=== PATIENT | female | born 1955 | race Caucasian/White ===

== ENCOUNTER 2016-09-10 11:53 | Emergency (ER) | payer BC ==
[2016-09-10 12:08] VITALS: O2SAT 98
[2016-09-10] MEDS ORDERED: Sodium Chloride 0.9% 1000 ML 1,000 ML IV ONE (12:08)
[2016-09-10] MEDS ORDERED: BABY ASPIRIN 81 MG CHEW PO ONE (12:12)
[2016-09-10] MEDS ORDERED: Zofran 4 MG/2 ML VIAL IV ONE (12:12)
[2016-09-10] MEDS ORDERED: Nitrostat 0.4 MG (ED) SL ONE (12:12)
--- NOTE | 2016-09-10 12:18 | ERPHSYRPT ---
- History of Present Illness Time Seen by Provider: 09/10/16 12:15 Historian: patient Exam Limitations: no limitations Patient Subjective Stated Complaint: pt co epigstric pain about 0930 today with nausea, has been out of gerd medication for 3 days Triage Nursing Assessment: pt alert, resp easy, skin w/d,pink, epigastric pain, no edema noted Physician History: The patient is a 61-year-old female who complains of substernal chest pain, epigastric pain and right sided chest pain that began about 2 and half hours ago. The pain radiates through to her back. She has been out of omeprazole for 3 days and thought this was reflux. It has continued even after taking sucralfate. She denies shortness of breath, nausea, or vomiting. Her past medical history is significant only for depression and reflux. She's had no cardiac history. Timing/Duration: today, hour(s) (2 1/2) Activities at Onset: none Quality: sharpness Location: substernal, central Chest Pain Radiation: back Severity of Pain-Max: severe Severity of Pain-Current: severe Modifying Factors: Improves With: antacids Associated Symptoms: No nausea, No vomiting, No shortness of breath Prior Chest Pain/Cardiac Workup: no prior chest pain, non-cardiac Nitro Today/Relief: 0.4 mg x 1, provided by ED Aspirin Treatment Today: 81 mg x 4, provided by ED Allergies/Adverse Reactions: cephalexin monohydrate [From Keflex] Adverse Reaction (Severe, Verified 12:09) Sulfa (Sulfonamide Antibiotics) Adverse Reaction (Severe, Verified 09/10/16 12: 09) Home Medications: Albuterol Sulfate [Proair Hfa] 8.5 gm IH UD 12/26/15 [History] Budesonide/Formoterol Fumarate [Symbicort 160-4.5 Mcg Inhaler] 10.2 gm IH DAILY PRN PRN 12/26/15 [History] Fluoxetine HCl 10 mg [Prozac 10 mg] 10 mg PO DAILY 12/26/15 [History] Omeprazole [Prilosec] 40 mg PO DAILY 12/26/15 [History] Hx Tetanus, Diphtheria Vaccination/Date Given: Yes (unknown) Hx Influenza Vaccination/Date Given: Yes Hx Pneumococcal Vaccination/Date Given: Yes Immunizations Up to Date: Yes - Review of Systems Constitutional: No Fever, No Chills Eyes: No Symptoms Ears, Nose, & Throat: No Symptoms Respiratory: No Cough, No Dyspnea Cardiac: Chest Pain Abdominal/Gastrointestinal: No Abdominal Pain, No Nausea, No Vomiting, No Diarrhea Genitourinary Symptoms: No Dysuria Musculoskeletal: No Back Pain, No Neck Pain Skin: No Rash Neurological: No Dizziness, No Focal Weakness, No Sensory Changes Psychological: No Symptoms Endocrine: No Symptoms Hematologic/Lymphatic: No Symptoms Immunological/Allergic: No Symptoms All Other Systems: Reviewed and Negative - Past Medical History Pertinent Past Medical History: Yes Neurological History: No Pertinent History ENT History: No Pertinent History Cardiac History: No Pertinent History Respiratory History: Bronchitis, Pneumonia Endocrine Medical History: No Pertinent History Musculoskeletal History: No Pertinent History GI Medical History: No Pertinent History History: No Pertinent History Psycho-Social History: No Pertinent History Female Reproductive Disorders: No Pertinent History Other Medical History: kidney stones. bronchitis - Past Surgical History Past Surgical History: Yes Neuro Surgical History: No Pertinent History Cardiac: No Pertinent History Respiratory: No Pertinent History Gastrointestinal: Appendectomy Genitourinary: No Pertinent History Musculoskeletal: No Pertinent History Female Surgical History: No Pertinent History Other Surgical History: TONSILS - Social History Smoking Status: Never smoker Exposure to second hand smoke: No Drug Use: none Patient Lives Alone: Yes - Female History Hx Last Menstrual Period: post - Nursing Vital Signs Nursing Vital Signs: Initial Vital Signs Temperature 97.0 F Temperature Source Oral Pulse Rate 56 Respiratory Rate 18 Blood Pressure [Right Arm] 157/66 Pain Intensity 8 - Physical Exam General Appearance: moderate distress Eye Exam: PERRL/EOMI, eyes nml inspection Ears, Nose, Throat Exam: normal ENT inspection, moist mucous membranes Neck Exam: normal inspection, non-tender, supple, full range of motion Respiratory Exam: normal breath sounds, lungs clear, No respiratory distress Cardiovascular Exam: regular rate/rhythm, normal heart sounds Gastrointestinal/Abdomen Exam: soft, No tenderness, No mass Pelvic Exam: not done Rectal Exam: not done Back Exam: normal inspection, No CVA tenderness, No vertebral tenderness Extremity Exam: normal inspection, normal range of motion Neurologic Exam: alert, oriented x 3, cooperative, normal mood/affect, sensation nml, No motor deficits Skin Exam: normal color, warm, dry SpO2 Interpretation: normal SpO2: 98 Oxygen Delivery: Room Air - Course EKG Interpreted by Me: RATE, Sinus Rhythm, NORMAL AXIS, NORMAL INTERVALS, ST Elev (V3,4,5,6) - Progress Progress: unchanged - Departure Time of Disposition: 12:22 Departure Disposition: Transfer ([facility] per Dr Roa and Dr Hutchison) Clinical Impression: STEMI (ST elevation myocardial infarction) Condition: Good Critical Care Time: Yes Critical Care Time(excluding separately billable procedures): 30-74 minutes
[2016-09-10] MEDS ORDERED: MORPHINE SULFATE 2 MG INJ ONE (12:19)
[2016-09-10] MEDS ORDERED: PLAVIX 75 MG Tablet PO ONE (12:22)
[2016-09-10] MEDS ORDERED: Heparin 25,000 units/D5W 250ML PREMIX 25,000 UNITS/250 ML BAG IV ONE (12:22)
[2016-09-10] MEDS ORDERED: Heparin 5000 UNITS/0.5 ML (HIGH RISK MED) IV ONE (12:22)
[2016-09-10 12:49] VITALS: BP 143/93; PULSE 55
[2016-09-10 13:17] LABS: BASOPHIL % 0.3 % (0.0-0.4); Eosinophil % 1.2 % (0.00-5.0); Granulocytes % 73.2 % (36.0-66.0); Lymphocytes % 16.9 % (24.0-44.0); Mean Cell Volume 93.8 fl (78-100); Mean Corpuscular Hemoglobin 30.4 pg (26-32); Mean Platelet Volume 9.8 fl (6-9.5); Monocytes % 8.4 % (0.0-12.0); Platelet Count 220 K/mm3 (150-450); Red Cell Distribution Width 13.3 % (11.5-14.0); White Blood Count 7.7 K/mm3 (4.0-10.5)
[2016-09-10 13:26] LABS: ALBUMIN 3.5 g/dL (3.4-5.0); ALKALINE PHOSPHATASE 57 U/L (46-116); ANION GAP 12.8 MEQ/L (5-15); BLOOD UREA NITROGEN 16 mg/dL (9-20); CHLORIDE 106 mEq/L (98-107); Carbon Dioxide 26.6 mEq/L (21-32); Glucose 143 MG/DL (70-110); Potassium 3.9 mEq/L (3.5-5.1); SGOT/AST 22 U/L (15-37); SGPT/ALT 20 U/L (12-78); SODIUM 142 mEq/L (136-145); TROPONIN 0.032 ng/ml (0.000-0.056); Total Protein 6.6 gm/dL (6.4-8.2)
--- NOTE | 2016-09-10 17:12 | XRAY ---
Indication: Chest pain. Comparison: December 27, 2015. Portable chest limited as the lung bases not included in the field of view. Technologist notes patient was transferred before repeat exam could be performed. Visualized heart and lungs normal. Bony thorax intact.
== END 2016-09-10 12:28 | disposition short-term general hospital (02) ==
LOC: ED 11:53
DX: I21.3 ST elevation (STEMI) myocardial infarction of unspecified site (principal); R11.0 Nausea; R07.89 Other chest pain; R10.13 Epigastric pain; Z79.899 Other long term (current) drug therapy
CPT/HCPCS: 36000; 36415; 71010; 80053; 84484; 85025; 93005; 93041; 99285; J1644; J2270; J2405; A9270-GY

== ENCOUNTER 2016-10-22 21:44 | Observation (INO) | payer BC ==
[2016-10-22] MEDS ORDERED: MORPHINE SULFATE 4 MG INJ IV ONE (23:33)
[2016-10-22] MEDS ORDERED: Zofran 4 MG/2 ML VIAL IV ONE (23:33)
--- NOTE | 2016-10-22 23:36 | ERPHSYRPT ---
- History of Present Illness Time Seen by Provider: 10/22/16 23:32 Historian: patient Exam Limitations: no limitations Patient Subjective Stated Complaint: Pt sts left side abd pain since yesterday. Hx of diverticulosis. Sts pain 11/22. Did have 2 BM's that were small with mucous and blood streaking in it. Pt describes pain as crampy. Pt denies N/V. Triage Nursing Assessment: Pt alert, oriented, answers all questions appropriately. Skin p/w/d, resps non-labored. ABD soft, tender left side palpation. + bowel sounds x 4 quadrants. Lung sounds CTA bilat non-labored. Physician History: This is a 61-year-old white female with history of atherosclerotic coronary artery disease who has had a recent cardiac stent She arrives with complaint of left lower quadrant abdominal pain bloody mucousy stool symptoms since today. Patient denies any injury past medical history includes bronchitis, pneumonia, coronary artery disease, high blood pressure, myocardial infarction, bronchitis , kidney stones. Past surgical history includes appendectomy cardiac stent. Timing/Duration: today Activities at Onset: none Quality: cramping Abdominal Pain Onset Location: LLQ Pain Radiation: no radiation Severity of Pain-Max: moderate Severity of Pain-Current: moderate Modifying Factors: Improves With: nothing Associated Symptoms: other (mucousy stools), No back, No chest pain, No diaphoresis, No diarrhea, No fever/chills, No fatigue, No headache, No heartburn , No loss of appetite, No nausea, No neck pain Previous symptoms: no prior history Allergies/Adverse Reactions: levofloxacin [From Levaquin] Allergy (Verified 10/22/16 22:51) cephalexin monohydrate [From Keflex] Adverse Reaction (Severe, Verified 12:09) Sulfa (Sulfonamide Antibiotics) Adverse Reaction (Severe, Verified 09/10/16 12: 09) cephalexin [From Keflex] Adverse Reaction (Verified 10/22/16 22:51) Home Medications: Albuterol Sulfate [Proair Hfa] 8.5 gm IH UD 12/26/15 [History] Fluoxetine HCl 10 mg [Prozac 10 mg] 10 mg PO DAILY 12/26/15 [History] Omeprazole [Prilosec] 40 mg PO DAILY 12/26/15 [History] Aspirin [Aspirin EC] 81 mg PO DAILY 10/22/16 [History] Lisinopril 10 mg [Zestril 10 MG] 10 mg PO DAILY 10/22/16 [History] Metoprolol Tartrate 12.5 mg PO BID 10/22/16 [History] Prasugrel HCl [Effient] 10 mg PO DAILY 10/22/16 [History] Rosuvastatin Calcium [Crestor] 10 mg PO DAILY 10/22/16 [History] Hx Tetanus, Diphtheria Vaccination/Date Given: Yes (unknown) Hx Influenza Vaccination/Date Given: Yes Hx Pneumococcal Vaccination/Date Given: Yes Immunizations Up to Date: Yes - Review of Systems Constitutional: No Fever, No Chills Eyes: No Symptoms Ears, Nose, & Throat: No Symptoms Respiratory: No Cough, No Dyspnea Cardiac: No Chest Pain, No Edema, No Syncope Abdominal/Gastrointestinal: Abdominal Pain, Other (mucousy stools with blood) Genitourinary Symptoms: No Dysuria Musculoskeletal: No Back Pain, No Neck Pain Skin: No Rash Neurological: No Dizziness, No Focal Weakness, No Sensory Changes Psychological: No Symptoms Endocrine: No Symptoms All Other Systems: Reviewed and Negative - Past Medical History Pertinent Past Medical History: Yes Neurological History: No Pertinent History ENT History: No Pertinent History Cardiac History: Coronary Artery Disease, Hypertension, Myocardial Infarction ( [place]) Respiratory History: Bronchitis, Pneumonia Endocrine Medical History: No Pertinent History Musculoskeletal History: No Pertinent History GI Medical History: GERD History: No Pertinent History Psycho-Social History: No Pertinent History Female Reproductive Disorders: No Pertinent History Other Medical History: kidney stones. bronchitis - Past Surgical History Past Surgical History: Yes Neuro Surgical History: No Pertinent History Cardiac: No Pertinent History Respiratory: No Pertinent History Gastrointestinal: Appendectomy Genitourinary: No Pertinent History Musculoskeletal: No Pertinent History Female Surgical History: No Pertinent History Other Surgical History: TONSILS, cardiac stent x 1 - Social History Smoking Status: Never smoker Exposure to second hand smoke: No Drug Use: none Patient Lives Alone: Yes - Nursing Vital Signs Nursing Vital Signs: Initial Vital Signs Temperature 100.3 F Temperature Source Oral Pulse Rate 78 Respiratory Rate 16 Blood Pressure [] 116/51 Pain Intensity 9 - Physical Exam General Appearance: moderate distress Eye Exam: PERRL/EOMI, eyes nml inspection Ears, Nose, Throat Exam: normal ENT inspection, pharynx normal, moist mucous membranes Neck Exam: normal inspection, non-tender, supple, full range of motion Respiratory Exam: normal breath sounds, lungs clear, No respiratory distress Cardiovascular Exam: regular rate/rhythm, normal heart sounds Gastrointestinal/Abdomen Exam: soft, normal bowel sounds, tenderness (left lower quadrant tenderness), No rebound Back Exam: normal inspection, normal range of motion, No CVA tenderness, No vertebral tenderness Extremity Exam: normal inspection, normal range of motion, pelvis stable Neurologic Exam: alert, oriented x 3, cooperative, normal mood/affect, nml cerebellar function, sensation nml, No motor deficits Skin Exam: normal color, warm, dry SpO2 Interpretation: normal (98%) SpO2: 98 Oxygen Delivery: Room Air - Course Nursing assessment & vital signs reviewed: Yes EKG Interpreted by Me: RATE (68 bpm), Sinus Rhythm, NORMAL AXIS, Other (EKG, sinus rhythm, 68 bpm, isolated T-wave inversion in lead 3, no acute ST or T wave changes noted) - CT Exams Abdomen/Pelvis CT Interpretation: Tele-radiologist Report (CT abdomen and pelvis without contrast: 1. Sigmoid/distal descending colon diverticulosis with surrounding inflammatory stranding consistent with diverticulitis, less likely colitis 2. Tiny nonobstructing biateral renal calculi versus medullary nephrocalcinosis.) Ordered Tests: Active Orders 24 hr Category Date Time Status EKG-ER Only STAT Care 10/22/16 23:32 Active IV Insertion STAT Care 10/22/16 23:32 Active ABDOMEN AND PELVIS W/0 CONTRAS [CT] Stat Exams 10/23/16 01:31 Taken AMYLASE Stat Lab 10/22/16 23:52 Completed CBC W DIFF Stat Lab 10/22/16 23:52 Completed CMP Stat Lab 10/22/16 23:52 Completed LIPASE Stat Lab 10/22/16 23:52 Completed UA W/ MICROSCOPIC Stat Lab 10/22/16 23:37 Completed Transfer Order Routine Transfer 10/23/16 03:21 Ordered Medication Summary Generic Name Dose Route Start Last Admin Trade Name Freq PRN Reason Stop Dose Admin Sodium Chloride 1,000 mls @ 100 mls/hr 10/22/16 23:45 10/22/16 23:55 Sodium Chloride 0.9% 1000 Ml IV 11/21/16 23:44 100 mls/hr .Q10H SAMANTA Administration Metronidazole 500 mg in 100 mls @ 200 mls/hr 10/23/16 03:10 Flagyl 500 Mg Ivpb IV 10/23/16 03:39 STAT STA Discontinued Medications Generic Name Dose Route Start Last Admin Trade Name Nat PRN Reason Stop Dose Admin Morphine Sulfate 4 mg 10/22/16 23:33 10/22/16 23:55 Morphine Sulfate 4 Mg Inj IV 10/22/16 23:34 4 mg STAT ONE Administration Morphine Sulfate Confirm 10/22/16 23:47 Morphine Sulfate 4 Mg Inj Administered 10/22/16 23:48 Dose 4 mg .ROUTE .STK-MED ONE Ondansetron HCl 4 mg 10/22/16 23:33 10/22/16 23:55 Zofran 4 Mg/2 Ml Vial IV 10/22/16 23:34 4 mg STAT ONE Administration Ondansetron HCl Confirm 10/22/16 23:47 Zofran 4 Mg/2 Ml Vial Administered 10/22/16 23:48 Dose 4 mg .ROUTE .STK-MED ONE Lab/Rad Data: Laboratory Result Diagrams 10/22/16 23:52 10/22/16 23:52 Laboratory Results 10/22/16 10/22/16 10/22/16 Range/Units 23:52 23:52 23:37 WBC 7.6 (4.0-10.5) K/mm3 RBC 4.41 (4.1-5.4) M/mm3 Hgb 13.7 (12.0-16.0) gm/dl Hct 41.1 (35-47) % MCV 93.2 (78-100) fl MCH 31.1 (26-32) pg MCHC 33.3 (32-36) g/dl RDW 12.8 (11.5-14.0) % Plt Count 189 (150-450) K/mm3 MPV 9.6 H (6-9.5) fl Gran % 74.0 H (36.0-66.0) % Lymphocytes % 13.8 L (24.0-44.0) % Monocytes % 11.2 (0.0-12.0) % Eosinophils % 0.7 (0.00-5.0) % Basophils % 0.3 (0.0-0.4) % Basophils # 0.02 (0-0.4) Sodium 142 (136-145) mEq/L Potassium 3.7 (3.5-5.1) mEq/L Chloride 105 (98-107) mEq/L Carbon Dioxide 26.5 (21-32) mEq/L Anion Gap 14.2 (5-15) MEQ/L BUN 22 H (9-20) mg/dL Creatinine 1.19 (0.55-1.30) mg/dl Estimated GFR 49 ML/MIN Glucose 111 H (70-110) MG/DL Calcium 9.3 (8.5-10.1) mg/dL Total Bilirubin 0.50 (0.2-1.0) mg/dL AST 17 (15-37) U/L ALT 42 (12-78) U/L Alkaline Phosphatase 74 (46-116) U/L Serum Total Protein 6.9 (6.4-8.2) gm/dL Albumin 3.9 (3.4-5.0) g/dL Amylase 48 (25-115) U/L Lipase 197 (73-393) U/L Ur Collection Type CLEAN CATCH Urine Color YELLOW (YELLOW) Urine Appearance CLEAR (CLEAR) Urine pH 5.0 (5-6) Ur Specific Powell 1.010 (1.005-1.025) Urine Protein NEGATIVE (Negative) Urine Ketones SMALL (NEGATIVE) Urine Blood TRACE NON-HEM (0-5) Luiz/ul Urine Nitrite NEGATIVE (NEGATIVE) Urine Bilirubin NEGATIVE (NEGATIVE) Urine Urobilinogen NORMAL (0-1) mg/dL Ur Leukocyte Esterase NEGATIVE (NEGATIVE) Urine Microscopic RBC 0-2 (0-2) /HPF Ur Epithelial Cells RARE (FEW) /HPF Urine Bacteria FEW (NEGATIVE) /HPF Urine Mucus SLIGHT (NEGATIVE) /HPF Urine Glucose NEGATIVE (NEGATIVE) mg/dL Specimen Received [id number] - Progress Progress: improved Progress Note: 10/23/16 01:32 Patient's labs are essentially normal. Unfortunately patient continues to have left lower quadrant abdominal pain markedly tender with palpation. Will go ahead and obtain CT of the abdomen and pelvis 10/23/16 02:54 CT of the abdomen and pelvis remarkable for sigmoid/distal descending colon diverticulosis with surrounding inflammatory stranding consistent with diverticulitis less likely colitis. 2 tiny nonobstructing bilateral renal calculi versus medullary nephrocalcinosis 10/23/16 03:06 Patient states her pain is coming back Will discuss case with Dr. Motta for possible placement on observation and treatment for diverticulitis. 10/23/16 03:11 Case is discussed with Dr. Motta, Will place patient on observation diagnoses diverticulitis abdominal pain, Patient with multiple allergies Will go ahead and place patient on Flagyl 500 mg IV every 8 hours, Continue IV fluids and continue morphine/Zofran for pain and nausea - Departure Time of Disposition: 03:21 Departure Disposition: Observation Clinical Impression: Abdominal pain, chronic, left lower quadrant Diverticulitis Qualifiers: Diverticulitis site: unspecified part of intestinal tract Diverticulitis bleeding: unspecified bleeding status Diverticulitis complication: without perforation or abscess Qualified Code(s): K57.92 - Diverticulitis of intestine, part unspecified, without perforation or abscess without bleeding Condition: Fair Critical Care Time: No Referrals: AMALIA OMTTA [Primary Care Provider] -
[2016-10-22 23:46] LABS: Bilirubin NEGATIVE (NEGATIVE); Blood TRACE NON-HEM Ery/ul (0-5); COMPLETE URINE MICROSCOPIC? YES; Collection Type CLEAN CATCH; Glucose NEGATIVE (NEGATIVE); Leukocyte Esterase NEGATIVE (NEGATIVE); Mucus SLIGHT /HPF (NEGATIVE)
[2016-10-22 23:47] LABS: ADD URINE CULTURE? NO (NO); Bacteria FEW /HPF (NEGATIVE); Epithelial Cells RARE /HPF (FEW)
[2016-10-22] MEDS ORDERED: MORPHINE SULFATE 4 MG INJ ONE (23:47)
[2016-10-22] MEDS ORDERED: Zofran 4 MG/2 ML VIAL ONE (23:47)
[2016-10-22 23:55] LABS: BASOPHIL % 0.3 % (0.0-0.4); Eosinophil % 0.7 % (0.00-5.0); Lymphocytes % 13.8 % (24.0-44.0); Mean Cell Volume 93.2 fl (78-100); Mean Corpuscular Hemoglobin 31.1 pg (26-32); Mean Platelet Volume 9.6 fl (6-9.5); Monocytes % 11.2 % (0.0-12.0); Platelet Count 189 K/mm3 (150-450); Red Blood Count 4.41 M/mm3 (4.1-5.4); Red Cell Distribution Width 12.8 % (11.5-14.0); White Blood Count 7.6 K/mm3 (4.0-10.5)
[2016-10-22] MEDS: Sodium Chloride 0.9% 1000 ML 1,000 ML IV SCH (23:55)
[2016-10-23 00:16] LABS: ALBUMIN 3.9 g/dL (3.4-5.0); ANION GAP 14.2 MEQ/L (5-15); BILIRUBIN,TOTAL 0.5 mg/dL (0.2-1.0); Carbon Dioxide 26.5 mEq/L (21-32); Potassium 3.7 mEq/L (3.5-5.1); Total Protein 6.9 gm/dL (6.4-8.2)
[2016-10-23] MEDS ORDERED: FLAGYL 500 MG IVPB 500 MG/100 ML BAG IV STA (03:10)
[2016-10-23] MEDS ORDERED: FLAGYL 500 MG IVPB 500 MG/100 ML BAG IV ONE (03:28)
[2016-10-23] MEDS ORDERED: Sodium Chloride 0.9% 1000 ML 1,000 ML IV SCH (03:55)
[2016-10-23] MEDS ORDERED: Zofran 4 MG/2 ML VIAL IV PRN (03:55)
[2016-10-23] MEDS ORDERED: MORPHINE SULFATE 4 MG INJ IV PRN (03:55)
[2016-10-23 07:14] LABS: BASOPHIL % 0.2 % (0.0-0.4); Eosinophil % 0.6 % (0.00-5.0); Lymphocytes % 20.7 % (24.0-44.0); Mean Cell Volume 94.6 fl (78-100); Mean Corpuscular Hemoglobin 31.1 pg (26-32); Mean Platelet Volume 9.8 fl (6-9.5); Monocytes % 10.5 % (0.0-12.0); Platelet Count 171 K/mm3 (150-450); Red Blood Count 4.05 M/mm3 (4.1-5.4); Red Cell Distribution Width 12.9 % (11.5-14.0); White Blood Count 6.3 K/mm3 (4.0-10.5)
[2016-10-23 07:39] LABS: ALBUMIN 3.3 g/dL (3.4-5.0); ALKALINE PHOSPHATASE 59 U/L (46-116); ANION GAP 11.2 MEQ/L (5-15); BLOOD UREA NITROGEN 16 mg/dL (9-20); CHLORIDE 108 mEq/L (98-107); Carbon Dioxide 28.3 mEq/L (21-32); Glucose 108 MG/DL (70-110); Potassium 4.1 mEq/L (3.5-5.1); SGOT/AST 19 U/L (15-37); SGPT/ALT 35 U/L (12-78); SODIUM 143 mEq/L (136-145); Total Protein 6.2 gm/dL (6.4-8.2)
[2016-10-23] MEDS ORDERED: PHARMACY DOSING REQUEST MC ONE (07:40)
--- NOTE | 2016-10-23 07:58 | HP ---
CHIEF COMPLAINT: Left lower quadrant abdominal pain. HISTORY OF PRESENT ILLNESS: The patient is a 61 year-old white female who reports that she has been having left lower quadrant abdominal pain for approximately 24 hours. She does have a history of diverticulosis. She reported pain was 8 out of 10. She had two previous bowel movements during the day which were small mucousy with blood-streaking in it and the patient reports being kind of crampy in nature. The patient reports previously having had diverticulosis approximately five years ago. She had a previous colonoscopy also five years ago which revealed diverticulosis and polyps. PAST MEDICAL/SURGICAL HISTORY: Otherwise significant for fairly recent myocardial infarction. She has coronary artery disease and recent stent placement. She has problems with hyperlipidemia, hypertension, gastroesophageal reflux disease, anxiety and depression. She reports history of kidney stones as well. She has had her tonsils removed. MEDICATIONS: She is currently on Albuterol, fluoxetine, Prilosec, aspirin, lisinopril, metoprolol, Effient and Crestor. ALLERGIES: LEVOFLOXACIN (NAUSEA). CEPHALEXIN (SORES IN THE MOUTH). SULFA (NAUSEA/VOMITING). PHYSICAL EXAMINATION: Revealed a well nourished, well developed 61 year-old white female currently in no obvious distress. Her vital signs on admission to the emergency room showed temperature 100.3F, pulse 83, respiratory rate 16, blood pressure 121/86. O2 saturation 98%. HEENT: Normocephalic, atraumatic. Pupils equal round reactive to light. Extraocular movements intact. Oropharynx is dry. NECK: Supple without lymphadenopathy, thyromegaly or JVD. CHEST: Clear to auscultation with good air movement bilaterally. HEART: Regular rate and rhythm without murmurs, rubs or gallops. ABDOMEN: Soft although exquisitely tender in the left lower quadrant. There is no guarding present. There are no palpable masses. EXTREMITIES: Without clubbing, cyanosis or edema. NEUROLOGIC: The patient is alert and oriented x3 with no focal deficits noted. LAB DATA AND TESTS: Hemoglobin 12.6, white blood cell count 6,300, PLT count 171,000. He has verbal reports of stranding in the left lower quadrant consistent with diverticulitis. Metabolic panel otherwise showed glucose 11 nonfasting otherwise was normal. UA specific gravity 1.010 with small ketones, 0-2 red blood cells were present and was otherwise essentially unremarkable. ASSESSMENT: A patient with diverticulitis. She has been admitted to the hospital for IV fluids, pain control and began on Flagyl at 500 mg IV every 8 hours. I will discuss with the pharmacy the patient's allergy list and the potential need for coverage with other antibiotics. Despite the patient's sensitivities I feel none of her reactions are true allergy reactions particularly to Levaquin.
[2016-10-23] MEDS: FLAGYL 500 MG IVPB 500 MG/100 ML BAG IV SCH ×4 (08:26→23:13)
[2016-10-23] MEDS: Zosyn 3.375GM/100 Ml D5W 3.375 GM/100 ML IVPB IV SCH ×2 (08:31→17:55)
[2016-10-23] MEDS ORDERED: Nitrostat 0.4 MG Tablet SL PRN (08:35)
[2016-10-23] MEDS: ECOTRIN 81 MG PO SCH (09:58)
[2016-10-23] MEDS: Acidophilus TABLET PO SCH (09:59)
[2016-10-23] MEDS: Effient 10 MG TABLET PO SCH (09:59)
[2016-10-23] MEDS: Prozac 20 MG PO SCH (09:59)
[2016-10-23] MEDS: Zestril 5 MG PO SCH (09:59)
[2016-10-23] MEDS: Lopressor 25MG Tab PO SCH ×2 (10:00→21:47)
[2016-10-23] MEDS ORDERED: NON-FORMULARY ITEM (Rosuvastatin Calcium [Crestor] 10 MG) PO SCH (10:00)
[2016-10-23] MEDS ORDERED: PROZAC 10 MG PO SCH (10:00)
[2016-10-23] MEDS ORDERED: Zestril 10 MG PO SCH (10:00)
[2016-10-23] MEDS ORDERED: PARACASEI B LACTIS PO SCH (10:00)
[2016-10-23] MEDS ORDERED: ACIDOPH PO SCH (10:00)
[2016-10-23] MEDS ORDERED: NON-FORMULARY ITEM (Omeprazole [Prilosec] 40 MG) PO SCH (10:00)
[2016-10-23] MEDS: Protonix 40MG Tablet PO SCH (10:02)
[2016-10-23] MEDS: Sodium Chloride 0.9% 1000 ML 1,000 ML IV SCH ×2 (10:03→21:51)
[2016-10-23] MEDS: ZOCOR 20MG PO SCH (21:47)
--- NOTE | 2016-10-23 22:21 | XRAY ---
Exam: CT of the abdomen and pelvis without IV contrast from 10/23/2016. CTDI: 20.52 Comparison: None. Indication: Left lower quadrant abdominal pain, dysuria, fever, mucus and blood in stool, history of diverticulosis and previous myocardial infarction. The patient has a history of prior appendectomy. Technique: Non-IV contrast axial images were obtained through the abdomen and pelvis. Reconstructed coronal and sagittal images were created and reviewed. Findings: There is minimal linear scarring or atelectasis at the anterior lateral right lung base. Subtle areas of air-trapping are also seen at the right lung base. The remainder of the lung bases appears clear. Evaluation of the solid organs is limited without the use of IV contrast. The liver and spleen are remarkable only for a small calcified granuloma within each organ. The gallbladder is distended and reveals no dense calcifications within it. The pancreas and adrenal glands appear unremarkable. The kidneys reveal no hydronephrosis or definite mass. Small subtle calcifications are seen within the deep central aspect of each kidney. I am not sure whether these represent small nonobstructing renal calculi or renal medullary nephrocalcinosis. There is no evidence of abdominal aortic aneurysm or abnormal retroperitoneal lymphadenopathy. Minimal vascular calcification is seen within the proximal abdominal aorta. There is no free intraperitoneal air. No ventral abdominal wall hernia is seen. I note scattered diverticula within the distal descending colon and sigmoid colon. In addition, there is some pericolonic hazy inflammatory stranding about the distal descending colon and at the descending colon-proximal sigmoid colon junction. There is also minimal thickening of Gerota's fascia on the left posterolaterally. These findings are small suggestive of diverticulitis. No abscess or significant free fluid is seen. No bowel distention or obstruction is seen. The appendix is not seen consistent with patient's history of prior appendectomy. Pelvic lymph nodes are not enlarged. The uterus is anteflexed and of unremarkable size. The remainder of the pelvic adnexa appears unremarkable. The urinary bladder is only partially distended. No urinary bladder stone is seen. I see mild degenerative disc disease at T12-L1, L1-L2, and L3-L4. No acute fracture or aggressive bone lesion is seen. I believe there is some mild narrowing of the right hip joint space suggesting mild osteoarthritis on this side. Mild facet joint arthropathy is seen at L5-S1 on the right. Impression: 1. Findings consistent with acute diverticulitis affecting the distal descending colon and descending colon-sigmoid colon junction. No abscess or drainable fluid collection is seen. No free air or significant free fluid is seen. 2. Scattered small nonobstructing bilateral renal calculi versus renal medullary nephrocalcinosis. No hydronephrosis is seen. 3. Skeletal findings as discussed above.
[2016-10-24] MEDS: Zosyn 3.375GM/100 Ml D5W 3.375 GM/100 ML IVPB IV SCH ×4 (01:05→20:31)
[2016-10-24] MEDS: FLAGYL 500 MG IVPB 500 MG/100 ML BAG IV SCH ×4 (05:04→22:57)
[2016-10-24] MEDS: Protonix 40MG Tablet PO SCH (07:26)
[2016-10-24 07:33] LABS: BASOPHIL % 0.8 % (0.0-0.4); Eosinophil % 2.4 % (0.00-5.0); Granulocytes % 54.4 % (36.0-66.0); Lymphocytes % 29.7 % (24.0-44.0); Mean Cell Volume 96.2 fl (78-100); Mean Corpuscular Hemoglobin 31.2 pg (26-32); Mean Platelet Volume 10.1 fl (6-9.5); Monocytes % 12.7 % (0.0-12.0); Platelet Count 142 K/mm3 (150-450); Red Blood Count 3.65 M/mm3 (4.1-5.4); White Blood Count 3.8 K/mm3 (4.0-10.5)
[2016-10-24 07:40] LABS: ALBUMIN 2.9 g/dL (3.4-5.0); ALKALINE PHOSPHATASE 59 U/L (46-116); ANION GAP 10.8 MEQ/L (5-15); BLOOD UREA NITROGEN 10 mg/dL (9-20); CHLORIDE 111 mEq/L (98-107); Carbon Dioxide 26.3 mEq/L (21-32); Glucose 97 MG/DL (70-110); Potassium 3.6 mEq/L (3.5-5.1); SGOT/AST 20 U/L (15-37); SGPT/ALT 27 U/L (12-78); SODIUM 145 mEq/L (136-145); Total Protein 5.5 gm/dL (6.4-8.2)
[2016-10-24] MEDS: Prozac 20 MG PO SCH (08:35)
[2016-10-24] MEDS: ECOTRIN 81 MG PO SCH (08:36)
[2016-10-24] MEDS: Zestril 5 MG PO SCH (08:36)
[2016-10-24] MEDS: Acidophilus TABLET PO SCH (08:36)
[2016-10-24] MEDS: Effient 10 MG TABLET PO SCH (08:37)
[2016-10-24] MEDS: Lopressor 25MG Tab PO SCH ×2 (08:37→22:46)
[2016-10-24] MEDS: Sodium Chloride 0.9% 1000 ML 1,000 ML IV SCH (12:51)
[2016-10-24] MEDS: ZOCOR 20MG PO SCH (22:44)
[2016-10-25] MEDS: Zosyn 3.375GM/100 Ml D5W 3.375 GM/100 ML IVPB IV SCH ×2 (00:24→05:37)
[2016-10-25 04:24] VITALS: O2SAT 94
[2016-10-25] MEDS: Sodium Chloride 0.9% 1000 ML 1,000 ML IV SCH (05:38)
[2016-10-25 05:52] LABS: BASOPHIL % 0.7 % (0.0-0.4); Eosinophil % 3.9 % (0.00-5.0); Granulocytes % 48.8 % (36.0-66.0); Lymphocytes % 32.9 % (24.0-44.0); Mean Cell Volume 93.7 fl (78-100); Mean Corpuscular Hemoglobin 30.4 pg (26-32); Monocytes % 13.7 % (0.0-12.0); Platelet Count 149 K/mm3 (150-450); Red Blood Count 3.65 M/mm3 (4.1-5.4); Red Cell Distribution Width 12.7 % (11.5-14.0); White Blood Count 3.1 K/mm3 (4.0-10.5)
[2016-10-25] MEDS: FLAGYL 500 MG IVPB 500 MG/100 ML BAG IV SCH (06:33)
[2016-10-25] MEDS: Protonix 40MG Tablet PO SCH (07:35)
[2016-10-25 08:08] VITALS: BP 154/67; PULSE 56
[2016-10-25] MEDS: Zestril 5 MG PO SCH (09:16)
[2016-10-25] MEDS: Acidophilus TABLET PO SCH (09:17)
[2016-10-25] MEDS: Prozac 20 MG PO SCH (09:17)
[2016-10-25] MEDS: Effient 10 MG TABLET PO SCH (09:18)
[2016-10-25] MEDS: Lopressor 25MG Tab PO SCH (09:18)
[2016-10-25] MEDS: ECOTRIN 81 MG PO SCH (09:18)
--- NOTE | 2016-10-25 10:16 | DS ---
DISCHARGE DIAGNOSIS: 1. DIVERTICULITIS. BRIEF HISTORY: The patient is a 61 y/o WF who presented herself to the Emergency Room with complaints of left lower quadrant abdominal pain 8 on a scale of 1-10. The patient was evaluated in the Emergency Room and found to have CT scan consistent with diverticulitis. The patient was admitted to the hospital and began on IV Zosyn and Flagyl. She did improve on a daily basis with the above treatments. She was initially left on gut rest on clear liquids, but advanced as tolerated. Her vital sign on 10/24/16 were normal, but on the evening at that time, she did have an episode of bradycardia and complaints of epigastric burning. Evaluation cardiac fitzpatrick was negative at that time. The patient does have a previous history of myocardial infarction. It was felt the patient was likely having trouble due to his continued taking of aspirin and the antibiotics on an empty stomach. The patient was feeling better by the morning of 10/25/16 and felt to be ready for discharge home. She was discharged home on Flagyl 250 mg tid for an additional week. To follow-up in the office in 1 week and she is to return to the hospital or call me if she has any further problems with worsening of the abdominal pain, fever, chills, sweats, or chest discomfort.
--- NOTE | 2016-10-25 10:53 | PCM.DCORD ---
- Discharge Discharge Date: 10/25/16 Disposition: Home, Self-Care Condition: Fair Prescriptions: New Metronidazole [Flagyl] 250 mg PO TID #21 tablet No Action Fluoxetine HCl 10 mg [Prozac 10 mg] 20 mg PO DAILY Albuterol Sulfate [Proair Hfa] 2 puffs IH UD PRN PRN Reason: Shortness Of Breath Omeprazole [Prilosec] 40 mg PO DAILY Metoprolol Tartrate 12.5 mg PO BID Prasugrel HCl [Effient] 10 mg PO DAILY Lisinopril 10 mg [Zestril 10 MG] 2.5 mg PO DAILY Aspirin [Aspirin EC] 81 mg PO DAILY Rosuvastatin Calcium [Crestor] 10 mg PO QAM Nitroglycerin 0.4 mg Tablet [Nitrostat 0.4 MG Tablet] 0.4 mg SL UD PRN PRN Reason: Chest Pain L.acidoph & Paracasei,B.lactis [Probiotic] 1 each PO DAILY Instructions: Diverticulitis Additional Instructions: take pulse in wrist, (count for 30 seconds then double) before taking Lopressor. if pulse is below 60 do not take the Lopressor. Write pulse down and take to follow-up appointment with Dr Motta. Follow up with: AMALIA MOTTA [Primary Care Provider] - 11/01/16 10:15 am
== END 2016-10-25 11:40 | disposition home or self-care (01) ==
LOC: ED 21:44 → MED SURG 10-23 03:45
PROVIDERS: ADMIT Family Medicine; ATTEND Family Medicine
DX: K57.92 Diverticulitis of intestine, part unspecified, without perforation or abscess without bleeding (principal); Z86.010 Personal history of colon polyps; I25.10 Atherosclerotic heart disease of native coronary artery without angina pectoris; E78.5 Hyperlipidemia, unspecified; I10 Essential (primary) hypertension; K21.9 Gastro-esophageal reflux disease without esophagitis; F41.8 Other specified anxiety disorders; Z87.442 Personal history of urinary calculi; Z79.899 Other long term (current) drug therapy
CPT/HCPCS: 36000; 36415; 74176; 80053; 81000; 82150; 83690; 84484; 85025; 93005; 93268; 96360; 96361; 96365; 99285; G0378; J2270; J2405; J2543; A9270-GY

== ENCOUNTER 2018-09-18 06:21 | Day surgery (SDC) | payer BC ==
--- NOTE | 2018-09-01 11:08 | HP ---
DATE OF SURGERY: 09/04/2018 ANTICIPATED PROCEDURES: 1) EGD. 2) Colonoscopy. HISTORY OF PRESENT ILLNESS: The patient presents for EGD for upper abdominal pain. Colonoscopy for evaluation of diverticulitis. She is age 63. She had three polyps back in 2011. She presents for both upper and lower endoscopic examination. PAST MEDICAL HISTORY: ALLERGIES: SULFA. MEDICATIONS: Multiple. PAST SURGICAL HISTORY: None. SOCIAL HISTORY: Negative. FAMILY HISTORY: Negative. REVIEW OF SYSTEMS: Heart attack. PHYSICAL EXAMINATION: VITAL SIGNS: Normal. CHEST: Clear. COR: Regular. ABDOMEN: No palpable organomegaly or mass. IMPRESSION: Epigastric pain and reflux. Five year follow up for polyps. PLAN: EGD and colonoscopy.
[2018-09-18] MEDS ORDERED: DIPRIVAN 200 MG/20 ML IV ONE (06:22)
[2018-09-18] MEDS ORDERED: Ketamine HCl 50 MG/ML IJ ONE (06:22)
[2018-09-18] MEDS ORDERED: Lactated Ringers 1,000 ML IV ONE (07:12)
[2018-09-18] MEDS ORDERED: Lactated Ringers 1,000 ML IV SCH (07:30)
--- NOTE | 2018-09-18 07:35 | HP ---
DATE OF SURGERY: 09/18/2018 ADMISSION DIAGNOSIS: ANTICIPATED PROCEDURES: 1) EGD. 2) Colonoscopy. HISTORY OF PRESENT ILLNESS: The patient has acid reflux, epigastric pain. She had three polyps back in 2011. She presents for both upper and lower endoscopic examination. PAST MEDICAL HISTORY: Heart attack. ALLERGIES: SULFA. MEDICATIONS: See list. SOCIAL HISTORY: Negative. FAMILY HISTORY: Negative. REVIEW OF SYSTEMS: PHYSICAL EXAMINATION: VITAL SIGNS: Normal. CHEST: Clear. COR: Regular. ABDOMEN: No palpable organomegaly or mass. IMPRESSION: Epigastric pain and symptoms. Patient requiring five year follow up for polyp. PLAN: EGD and colonoscopy.
--- NOTE | 2018-09-18 10:16 | OP ---
SURGERY DATE/TIME: 09/18/2018 0840 PREOPERATIVE DIAGNOSES: 1) Epigastric pain. 2) History of polyps. POSTOPERATIVE DIAGNOSES: 1) Findings of 1 inch hiatal hernia, grade II-III gastroesophageal reflux disease. 2) Findings of moderate diverticulosis. PROCEDURES: 1) EGD. 2) Colonoscopy complete to cecum. SURGEON: Khai Chavez M.D. ANESTHESIA: MAC. COMPLICATIONS: None. CONDITION: Stable. INDICATION: A patient requiring evaluation. DESCRIPTION OF PROCEDURE: Taken to endoscopy. MAC sedation provided. Upper scope introduced. Pharyngoesophageal junction normal. Esophagus normal down to gastroesophageal junction. A rim of esophagitis grade II, small 1 inch hiatal hernia. The fundus, body and antrum was normal. Pylorus normal. Duodenal bulb normal. Second portion normal. The scope withdrawn looped upon itself normal. A 1 inch hiatal hernia. Scope withdrawn. The patient needs to continue anti-reflux measures. She could be a candidate for Wilfredo fundoplication if she so desired. This was just mentioned to her family. Anal digital examination satisfactory. There was just a little bit of pink rash at the anus. The scope advanced to the cecum. There was a very redundant colon but despite this there were no signs of any colitis. The base of cecum was normal. Ileocecal valve normal. Ascending normal. Scattered diverticulum in the transverse, a little bit more numerous diverticulum in the sigmoid. Rectum satisfactory. Anus satisfactory. IMPRESSION: Moderate pancolonic diverticulosis otherwise satisfactory. She has had polyps before. We will place her on a five year follow up exam.
[2018-09-18 10:28] VITALS: PULSE 72
[2018-09-18 10:29] VITALS: BP 147/72
[2018-09-18 11:21] VITALS: O2SAT 95
== END 2018-09-18 11:15 | disposition home or self-care (01) ==
LOC: SDC 06:21
PROVIDERS: ATTEND Surgery
DX: K44.9 Diaphragmatic hernia without obstruction or gangrene (principal); K57.30 Diverticulosis of large intestine without perforation or abscess without bleeding; K21.9 Gastro-esophageal reflux disease without esophagitis; R10.13 Epigastric pain; Z86.010 Personal history of colon polyps; K20.9 Esophagitis, unspecified
CPT/HCPCS: J2704

== ENCOUNTER 2019-04-23 12:51 | Emergency (ER) | payer MEDICARE, OTHER ==
--- NOTE | 2019-04-23 13:01 | ERPHSYRPT ---
- History of Present Illness Time Seen by Provider: 04/23/19 12:56 Historian: patient, family Exam Limitations: no limitations Physician History: 64 y/o white female, with known h/o cadz, mi and an LAD cardiac stent. pt is on anticoag tx-effient. pt noticed localized substernal, central cp described as nonradiating burning intermittently for 2 weeks worse today. denies soa. denies flu sx. although she does complain of dry cough intermittently after increase in lisinopril dosing recently. Timing/Duration: worse Quality: burning Location: substernal, central Chest Pain Radiation: no radiation Severity of Pain-Max: mild Severity of Pain-Current: mild Modifying Factors: Improves With: nothing Associated Symptoms: cough, No nausea, No vomiting, No shortness of breath, No diaphoresis, No chills, No fever Prior Chest Pain/Cardiac Workup: cardiac cath, heart attack Nitro Today/Relief: no nitro taken today Aspirin Treatment Today: no aspirin today Allergies/Adverse Reactions: cephalexin monohydrate [From Keflex] Adverse Reaction (Severe, Verified 13:09) Sulfa (Sulfonamide Antibiotics) Adverse Reaction (Severe, Verified 04/23/19 13: 09) Nausea and Vomiting cephalexin [From Keflex] Adverse Reaction (Verified 04/23/19 13:09) Sore Throat Home Medications: Albuterol Sulfate [Proair Hfa] 2 puffs IH UD PRN 12/26/15 [History] Fluoxetine HCl 10 mg [Prozac 10 mg] 40 mg PO DAILY 12/26/15 [History] Lisinopril 10 mg [Zestril 10 MG] 10 mg PO DAILY 10/22/16 [History] Prasugrel HCl [Effient] 10 mg PO DAILY 10/22/16 [History] Nitroglycerin 0.4 mg Tablet [Nitrostat 0.4 MG Tablet] 0.4 mg SL UD PRN 03/01 [History] Budesonide/Formoterol Fumarate [Symbicort 160-4.5 Mcg Inhaler] 6 gm IH DAILY [History] Ergocalciferol (Vitamin D2) [Vitamin D] 50,000 unit PO WEEKLY 08/28/18 [History] PANTOPRAZOLE 40 mg Tablet [Protonix 40MG Tablet] 40 mg PO QAM 08/28/18 [ History] Cholecalciferol (Vitamin D3) [Vitamin D] 1,000 unit PO DAILY 09/18/18 [ History] Famotidine 20 mg [Pepcid 20 MG] 40 mg PO HS 09/18/18 [History] Pravastatin Sodium 10 mg PO DAILY 04/23/19 [History] Hx Tetanus, Diphtheria Vaccination/Date Given: Yes (unknown) Hx Influenza Vaccination/Date Given: Yes Hx Pneumococcal Vaccination/Date Given: Yes - Review of Systems Constitutional: No Symptoms Eyes: No Symptoms Ears, Nose, & Throat: No Symptoms Respiratory: No Symptoms Cardiac: Chest Pain, No Palpitations, No Syncope Abdominal/Gastrointestinal: No Symptoms, No Abdominal Pain, No Nausea, No Vomiting Genitourinary Symptoms: No Symptoms Musculoskeletal: No Symptoms Skin: No Symptoms Neurological: No Symptoms Psychological: No Symptoms Endocrine: No Symptoms Hematologic/Lymphatic: No Symptoms Immunological/Allergic: No Symptoms All Other Systems: Reviewed and Negative - Past Medical History Pertinent Past Medical History: Yes Neurological History: No Pertinent History ENT History: No Pertinent History Cardiac History: Coronary Artery Disease, Hypertension, Myocardial Infarction ( CT) Respiratory History: Bronchitis, Pneumonia Endocrine Medical History: No Pertinent History Musculoskeletal History: No Pertinent History GI Medical History: GERD History: No Pertinent History Psycho-Social History: No Pertinent History Female Reproductive Disorders: No Pertinent History Other Medical History: kidney stones. bronchitis - Past Surgical History Past Surgical History: Yes Neuro Surgical History: No Pertinent History Cardiac: No Pertinent History Respiratory: No Pertinent History Gastrointestinal: Appendectomy Genitourinary: Kidney Surgery Musculoskeletal: No Pertinent History Female Surgical History: No Pertinent History Other Surgical History: TONSILS, cardiac stent x 1 - Social History Smoking Status: Never smoker Exposure to second hand smoke: No Drug Use: none Patient Lives Alone: Yes - Nursing Vital Signs Nursing Vital Signs: Initial Vital Signs Temperature 98.1 F 04/23/19 12:53 Pulse Rate 69 04/23/19 12:53 Respiratory Rate 17 04/23/19 12:53 Blood Pressure 158/69 04/23/19 12:53 O2 Sat by Pulse Oximetry 98 04/23/19 12:53 Pain Scale Pain Intensity 1 - Physical Exam General Appearance: mild distress, alert, anxiety Eye Exam: PERRL/EOMI, eyes nml inspection Ears, Nose, Throat Exam: normal ENT inspection, moist mucous membranes Neck Exam: normal inspection, non-tender, supple, full range of motion Respiratory Exam: normal breath sounds, chest tenderness, lungs clear, No respiratory distress, No airway intact Cardiovascular Exam: regular rate/rhythm, normal heart sounds, normal peripheral pulses Gastrointestinal/Abdomen Exam: soft, normal bowel sounds, No tenderness Pelvic Exam: not done Rectal Exam: not done Back Exam: normal inspection, normal range of motion, No CVA tenderness, No vertebral tenderness Extremity Exam: normal inspection, normal range of motion, pelvis stable Neurologic Exam: alert, oriented x 3, cooperative, 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 no changes when compared to ekg dated 10/23/16) Ordered Tests: Active Orders 24 hr Category Date Time Status Internet Salesperson STAT Care 04/23/19 13:56 Active EKG-ER Only STAT Care 04/23/19 13:55 Active IV Insertion STAT Care 04/23/19 13:55 Active Pulse Oximetry (ED) STAT Care 04/23/19 13:55 Active CHEST 1 VIEW (PORTABLE) Stat Exams 04/23/19 13:56 Completed CBC W DIFF Stat Lab 04/23/19 13:40 Completed CMP Stat Lab 04/23/19 13:40 Completed D-DIMER QUANTITATIVE Stat Lab 04/23/19 13:55 Completed NT PRO BNP Stat Lab 04/23/19 13:40 Completed PROTIME WITH INR Stat Lab 04/23/19 13:55 Completed TROPONIN Q3H Lab 04/23/19 13:40 Completed TROPONIN Q3H Lab 04/23/19 17:00 Completed TROPONIN Q3H Lab 04/23/19 20:00 Ordered TROPONIN Q3H Lab 04/23/19 23:00 Ordered TROPONIN Q3H Lab 04/24/19 02:00 Ordered Medication Summary Discontinued Medications Generic Name Dose Route Start Last Admin Trade Name Freq PRN Reason Stop Dose Admin Aspirin 324 mg 04/23/19 13:55 04/23/19 14:30 Baby Aspirin 81 Mg Chew PO 04/23/19 13:56 Not Given STAT ONE Lab/Rad Data: Laboratory Result Diagrams 04/23/19 13:40 04/23/19 13:40 Laboratory Results 04/23/19 04/23/19 04/23/19 Range/Units 17:00 13:55 13:40 WBC (4.0-10.5) K/mm3 RBC (4.1-5.4) M/mm3 Hgb (12.0-16.0) gm/dl Hct (35-47) % MCV (78-100) fl MCH (26-32) pg MCHC (32-36) g/dl RDW (11.5-14.0) % Plt Count (150-450) K/mm3 MPV (7.5-11.0) fl Gran % (36.0-66.0) % Eos # (Auto) (0-0.5) Absolute Lymphs (auto) (1.0-4.6) Absolute Monos (auto) (0.0-1.3) Lymphocytes % (24.0-44.0) % Monocytes % (0.0-12.0) % Eosinophils % (0.00-5.0) % Basophils % (0.0-0.4) % Absolute Granulocytes (1.4-6.9) Basophils # (0-0.4) PT 11.4 (9.95-12.35) SECONDS INR 1.01 (0.8-3.0) D-Dimer 456 (215-500) ng/mL Sodium (137-145) mmol/L Potassium (3.5-5.1) mmol/L Chloride (98-107) mmol/L Carbon Dioxide (22-30) mmol/L Anion Gap (5-15) MEQ/L BUN (7-17) mg/dL Creatinine (0.52-1.04) mg/dL Estimated GFR ML/MIN Glucose (74-106) mg/dL Calcium (8.4-10.2) mg/dL Total Bilirubin (0.2-1.3) mg/dL AST (14-36) U/L ALT (0-35) U/L Alkaline Phosphatase (38-126) U/L Troponin I < 0.012 < 0.012 (0.000-0.034) ng/mL NT-Pro-B Natriuret Pep (0-900) pg/mL Serum Total Protein (6.3-8.2) g/dL Albumin (3.5-5.0) g/dL 04/23/19 04/23/19 Range/Units 13:40 13:40 WBC 4.8 (4.0-10.5) K/mm3 RBC 4.33 (4.1-5.4) M/mm3 Hgb 13.9 (12.0-16.0) gm/dl Hct 41.8 (35-47) % MCV 96.5 (78-100) fl MCH 32.1 H (26-32) pg MCHC 33.3 (32-36) g/dl RDW 13.2 (11.5-14.0) % Plt Count 224 (150-450) K/mm3 MPV 9.9 (7.5-11.0) fl Gran % 64.9 (36.0-66.0) % Eos # (Auto) 0.14 (0-0.5) Absolute Lymphs (auto) 1.03 (1.0-4.6) Absolute Monos (auto) 0.50 (0.0-1.3) Lymphocytes % 21.4 L (24.0-44.0) % Monocytes % 10.4 (0.0-12.0) % Eosinophils % 2.9 (0.00-5.0) % Basophils % 0.4 (0.0-0.4) % Absolute Granulocytes 3.13 (1.4-6.9) Basophils # 0.02 (0-0.4) PT (9.95-12.35) SECONDS INR (0.8-3.0) D-Dimer (215-500) ng/mL Sodium 139 (137-145) mmol/L Potassium 3.5 (3.5-5.1) mmol/L Chloride 106 (98-107) mmol/L Carbon Dioxide 27 (22-30) mmol/L Anion Gap 10.1 (5-15) MEQ/L BUN 17 (7-17) mg/dL Creatinine 0.81 (0.52-1.04) mg/dL Estimated GFR > 60.0 ML/MIN Glucose 133 H (74-106) mg/dL Calcium 9.7 (8.4-10.2) mg/dL Total Bilirubin 0.60 (0.2-1.3) mg/dL AST 27 (14-36) U/L ALT 19 (0-35) U/L Alkaline Phosphatase 63 (38-126) U/L Troponin I (0.000-0.034) ng/mL NT-Pro-B Natriuret Pep 69.2 (0-900) pg/mL Serum Total Protein 7.3 (6.3-8.2) g/dL Albumin 4.2 (3.5-5.0) g/dL - Progress Progress: improved, re-examined Air Movement: good Progress Note: 04/23/19 13:20 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 in addition, her step father two days ago. so she is under a lot of stress 04/23/19 14:37 pt refused aspirin because she has diverticulitis 04/23/19 17:40 cxr- no acute process no cp, sx resolved Blood Culture(s) Obtained: No Antibiotics given: No Counseled pt/family regarding: lab results, diagnosis, need for follow-up, rad results - Departure Departure Disposition: Home Clinical Impression: Chest pain, non-cardiac Condition: Stable Critical Care Time: No Referrals: JASON FRANKLIN NP [Primary Care Provider] - Additional Instructions: follow up with primary doctor and cone chocolate dipper for further management
[2019-04-23] MEDS ORDERED: BABY ASPIRIN 81 MG CHEW PO ONE (13:55)
[2019-04-23 14:04] LABS: Absolute Neutrophil Ct (ANC) 3.13 (1.4-6.9); BASOPHIL % 0.4 % (0.0-0.4); Basophil (Absolute #) 0.02 (0-0.4); Eosinophil % 2.9 % (0.00-5.0); Eosinophil (Absolute #) 0.14 (0-0.5); Hematocrit 41.8 % (35-47); Hemoglobin 13.9 gm/dl (12.0-16.0); Lymphocyte (Absolute #) 1.03 (1.0-4.6); Lymphocytes % 21.4 % (24.0-44.0); Mean Cell Volume 96.5 fl (78-100); Mean Corpuscular Hemoglobin 32.1 pg (26-32); Mean Corpuscular Hgb Concent. 33.3 g/dl (32-36); Mean Platelet Volume 9.9 fl (7.5-11.0); Monocytes % 10.4 % (0.0-12.0); Neutrophil % 64.9 % (36.0-66.0); Platelet Count 224 K/mm3 (150-450); Red Blood Count 4.33 M/mm3 (4.1-5.4); Red Cell Distribution Width 13.2 % (11.5-14.0); White Blood Count 4.8 K/mm3 (4.0-10.5)
--- NOTE | 2019-04-23 14:15 | XRAY ---
Indication: Cough, congestion, and palpitations. Comparison: February 15, 2017. Portable chest again demonstrates normal heart, lungs, and bony thorax with incidental tiny left apical calcified granuloma.
[2019-04-23 14:17] LABS: INR 1.01 (0.8-3.0); PROTIME 11.4 SECONDS (9.95-12.35)
[2019-04-23 14:17] LABS: ALBUMIN 4.2 g/dL (3.5-5.0); ALKALINE PHOSPHATASE 63 U/L (38-126); ANION GAP 10.1 MEQ/L (5-15); BLOOD UREA NITROGEN 17 mg/dL (7-17); CHLORIDE 106 mmol/L (98-107); Calcium 9.7 mg/dL (8.4-10.2); Carbon Dioxide 27 mmol/L (22-30); Creatinine 1 0.81 mg/dL (0.52-1.04); Glucose 133 mg/dL (74-106); NT PRO BNP 69.2 pg/mL (0-900); Potassium 3.5 mmol/L (3.5-5.1); SGOT/AST 27 U/L (14-36); SGPT/ALT 19 U/L (0-35); SODIUM 139 mmol/L (137-145); Total Protein 7.3 g/dL (6.3-8.2)
[2019-04-23 16:26] VITALS: O2SAT 98
[2019-04-23 17:07] VITALS: BP 161/92; PULSE 61
== END 2019-04-23 17:53 | disposition home or self-care (01) ==
LOC: ED 12:51
DX: R07.89 Other chest pain (principal)
CPT/HCPCS: 36000; 36415; 71045; 80053; 83880; 84484; 85025; 85379; 85610; 93005; 93041; 94760; 99284

== ENCOUNTER 2022-11-27 07:50 | Day surgery (SDC) | payer MEDICARE, OTHER ==
[2022-11-27] MEDS ORDERED: cefUROXime sodium 0.005 GM in Sodium Chloride Flush 30 ML*** 0.5 ML IJ ONE (08:00)
[2022-11-27] MEDS ORDERED: TETRACAINE 0.5% STERI-UNIT SOL OP ONE (08:00)
[2022-11-27] MEDS ORDERED: BETADINE 5% OPHTHALMIC 30 ML OP ONE (08:00)
[2022-11-27] MEDS ORDERED: Ak-Dilate OPHTHALMIC*** 1.065 ML, Cyclogyl 1% OPHTH SOL 1.065 ML, GATIFLOXACIN 0.5% OPH... OP ONE ×4 (08:00)
[2022-11-27] MEDS ORDERED: NON-FORMULARY ITEM OP ONE (08:00)
[2022-11-27] MEDS ORDERED: Lactated Ringers 1,000 ML IV SCH (08:00)
[2022-11-27] MEDS ORDERED: Zofran 4 MG/2 ML VIAL IV PRN (09:00)
[2022-11-27] MEDS ORDERED: ACETAZOLAMIDE 250 MG TABLET PO ONE (09:00)
[2022-11-27] MEDS ORDERED: Lactated Ringers 1,000 ML IV ONE (09:12)
[2022-11-27] MEDS: TETRACAINE 0.5% STERI-UNIT SOL OP ONE ×2 (09:23→09:57)
[2022-11-27] MEDS ORDERED: Versed 2 MG/2 ML Injection ONE (11:14)
[2022-11-27] MEDS ORDERED: DIPRIVAN 200 MG/20 ML IV ONE (11:24)
[2022-11-27 11:34] VITALS: RESP 16
[2022-11-27 11:41] VITALS: BP 116/73; PULSE 61; TEMP 96.6; O2SAT 95
[2022-11-27] MEDS ORDERED: Epinephrine Preservative Free 1 MG/ML ONE (15:08)
== END 2022-11-27 11:50 | disposition home or self-care (01) ==
LOC: SDC 07:50
PROVIDERS: ATTEND Ophthalmology
DX: H25.812 Combined forms of age-related cataract, left eye (principal)
CPT/HCPCS: 93005; C1780; J0171; J2250; J2704; A9270-GY

== ENCOUNTER 2023-07-30 08:10 | Inpatient (IN) | payer MEDICARE, OTHER ==
[2023-07-30] MEDS: ACYCLOVIR PO STA (08:45)
[2023-07-30] MEDS ORDERED: TORAdol 30 mg Injection ONE (08:47)
[2023-07-30] MEDS: TORAdol 30 mg Injection IM ONE (08:47)
--- NOTE | 2023-07-30 08:48 | ERPHSYRPT ---
- History of Present Illness Time Seen by Provider: 07/30/23 08:30 Source: patient Exam Limitations: no limitations Patient Subjective Stated Complaint: PT states "I woke up saturday and had an earache and a headache and a rash started on my face and neck. I have tried asp ercreme and a warm rice pack on my neck and the pain is awful." Triage Nursing Assessment: PT presented alert and oriented X 3, skin wpd. pt ambulates with an upright steady gait, pt has red rash and blisters to face and neck and left ear. Physician History: 5-year-old female presents to our ED for evaluation of shingles rash to the left side of her face neck scalp. Symptoms started on Saturday. No associated fever. No altered sensorium. No photophobia no meningeal signs. Patient states her symptoms started with an earache. Patient went to [facility] and has been applying cream. Patient states she feels her symptoms have gotten a little worse. No nausea no vomiting. No chest pain or shortness of breath. Symptoms are progressive. Symptoms are moderate in intensity. No specific worsening improving factors. Patient denies a history of the same. She voices no other complaints or concerns at this time. Portions of this note were created with voice recognition technology. There may be grammatical, spelling, punctuation or sound alike errors Timing/Duration: day(s) (3 days) Severity: moderate Modifying Factors: Improves With: nothing Associated Symptoms: denies symptoms Allergies/Adverse Reactions: cephalexin monohydrate [From Keflex] Adverse Reaction (Severe, Verified 07/30/23 10:58) Sulfa (Sulfonamide Antibiotics) Adverse Reaction (Severe, Verified 07/30/23 10:58) Nausea and Vomiting cephalexin [From Keflex] Adverse Reaction (Verified 07/30/23 10:58) Sore Throat Home Medications: Fluoxetine HCl 10 mg [Prozac 10 mg] 40 mg PO HS 12/26/15 [History] Lisinopril 10 mg [Zestril 10 MG] 10 mg PO HS 10/22/16 [History] Budesonide/Formoterol Fumarate [Symbicort 160-4.5 Mcg Inhaler] 6 gm IH DAILY 08/28/18 [History] Ergocalciferol (Vitamin D2) [Vitamin D] 50,000 unit PO WEEKLY 08/28/18 [History] Famotidine 20 mg [Pepcid 20 MG] 60 mg PO HS 09/18/18 [History] Pravastatin Sodium 10 mg PO UD 04/23/19 [History] Amlodipine Besylate 10 mg PO HS 11/16/22 [History] Aspirin [Aspirin EC] 81 mg PO HS 11/16/22 [History] Omeprazole 40 mg PO DAILY 11/16/22 [History] clonazePAM [Clonazepam] 0.5 mg PO HS 11/16/22 [History] Hx Tetanus, Diphtheria Vaccination/Date Given: Yes (unknown) Hx Influenza Vaccination/Date Given: Yes Hx Pneumococcal Vaccination/Date Given: Yes Immunizations Up to Date: No Travel Risk - International Travel Have you traveled outside of the country in past 3 weeks: No - Emerging Infectious Disease Are you exhibiting symptoms associated with any current EIDs: No - Review of Systems Constitutional: No Symptoms, No Fever, No Chills Eyes: No Symptoms Ears, Nose, & Throat: No Symptoms Respiratory: No Symptoms, No Cough, No Dyspnea Cardiac: No Symptoms, No Chest Pain, No Edema, No Syncope Abdominal/Gastrointestinal: No Symptoms, No Abdominal Pain, No Nausea, No Vomiting, No Diarrhea Genitourinary Symptoms: No Symptoms, No Dysuria Musculoskeletal: No Symptoms, No Back Pain, No Neck Pain Skin: No Symptoms, No Rash Neurological: No Symptoms, No Dizziness, No Focal Weakness, No Sensory Changes Psychological: No Symptoms Endocrine: No Symptoms Hematologic/Lymphatic: No Symptoms Immunological/Allergic: No Symptoms All Other Systems: Reviewed and Negative - Past Medical History Pertinent Past Medical History: Yes Neurological History: No Pertinent History ENT History: No Pertinent History Cardiac History: Coronary Artery Disease, Hypertension, Myocardial Infarction ([place]) Respiratory History: Bronchitis Endocrine Medical History: No Pertinent History Musculoskeletal History: Osteoarthritis GI Medical History: GERD History: No Pertinent History Psycho-Social History: Anxiety Female Reproductive Disorders: Other Other Medical History: ANXIETY, kidney stones - Past Surgical History Past Surgical History: Yes Neuro Surgical History: No Pertinent History Cardiac: No Pertinent History Respiratory: No Pertinent History Gastrointestinal: Appendectomy Genitourinary: Kidney Surgery Musculoskeletal: Joint Replacement Female Surgical History: No Pertinent History Other Surgical History: TONSILS, cardiac stent x L knee - Social History Smoking Status: Never smoker Exposure to second hand smoke: No Drug Use: none Patient Lives Alone: Yes - Nursing Vital Signs Nursing Vital Signs: Initial Vital Signs Temperature 96.5 F 07/30/23 08:18 Pulse Rate 100 H 07/30/23 08:18 Respiratory Rate 22 07/30/23 08:18 Blood Pressure 181/90 07/30/23 08:18 O2 Sat by Pulse Oximetry 96 07/30/23 08:18 Pain Scale Pain Intensity 5 - Physical Exam General Appearance: no apparent distress, alert Eye Exam: PERRL/EOMI, eyes nml inspection Ears, Nose, Throat Exam: normal ENT inspection, TMs normal, pharynx normal, moist mucous membranes, other (Shingles rash involving the left ear left scalp left face left neck and left upper chest) Neck Exam: normal inspection, non-tender, supple, full range of motion Respiratory Exam: normal breath sounds, lungs clear, airway intact, No respiratory distress Cardiovascular Exam: regular rate/rhythm, normal heart sounds, normal peripheral pulses Gastrointestinal/Abdomen Exam: soft, normal bowel sounds, No tenderness, No mass Back Exam: normal inspection, normal range of motion, No CVA tenderness, No vertebral tenderness Extremity Exam: normal inspection, normal range of motion, pelvis stable Neurologic Exam: alert, oriented x 3, cooperative, normal mood/affect, nml cerebellar function, nml station & gait, sensation nml, other (No photophobia no nuchal rigidity no fever no meningeal signs), No motor deficits, No disoriented, No confusion, No agitation, No uncooperative, No motor weakness, No facial droop, No slurred speech, No abnormal gait, No abnormal cerebellar tests, No abnormal nanny babysitter II-XII, No EOM palsy Skin Exam: normal color, warm, dry, No rash Lymphatic Exam: No adenopathy SpO2 Interpretation: normal SpO2: 96 O2 Delivery: Room Air - Course Nursing assessment & vital signs reviewed: Yes Ordered Tests: Active Orders 24 hr Category Date Time Status Bedrest ROUTINE Activity 07/30/23 10:44 Active Call Admit Doctor for Orders ON ADMISSION Care 07/30/23 10:44 Active Code Status Order ROUTINE Care 07/30/23 10:44 Active Neuro Checks Q4H Care 07/30/23 10:[address] in Observation ROUTINE Care 07/30/23 10:44 Active Heart-Healthy Diet Diet 07/30/23 Lunch Completed CBC W DIFF Stat Lab 07/30/23 10:00 Completed CMP Stat Lab 07/30/23 10:00 Completed Pulse Oximetry CONTINUOUS RT 07/30/23 10:44 Completed Medication Summary Generic Name Dose Route Start Last Admin Trade Name Freq PRN Reason Stop Dose Admin Acetaminophen 650 mg 07/30/23 11:19 Acetaminophen 325 Mg Tablet PO 08/29/23 11:18 Q4H PRN PRN PAIN, FEVER, HEADACHE Hydrocodone Bitart/Acetaminophen 1 tablet 07/30/23 11:19 07/30/23 22:38 Hydrocodone/Acetamin 10-325 Mg Tablet PO 08/04/23 11:18 1 tablet Q4H PRN PRN Administration PAIN Amlodipine Besylate 10 mg 07/30/23 22:00 07/30/23 22:38 Amlodipine Besylate 5 Mg Tablet PO 08/29/23 21:59 10 mg HS SAMANTA Administration Aspirin 81 mg 07/30/23 22:00 07/30/23 22:38 Aspirin 81 Mg Tablet.Ec PO 08/29/23 21:59 81 mg HS SAMANTA Administration Clonazepam 0.5 mg 07/30/23 22:00 07/30/23 22:39 Clonazepam 0.5 Mg Tablet PO 08/29/23 21:59 0.5 mg HS SAMANTA Administration Enoxaparin Sodium 40 mg 07/31/23 10:00 Enoxaparin Sodium 40 Mg/0.4 Ml Syringe SQ 08/30/23 09:59 DAILY SAMANTA Ergocalciferol 50,000 unit 07/31/23 10:00 Ergocalciferol (Vitamin D2) 50,000 Unit Capsule PO 08/30/23 09:59 We@1000 SAMANTA Famotidine 60 mg 07/30/23 22:00 07/30/23 22:37 Famotidine 20 Mg Tablet PO 08/29/23 21:59 60 mg HS SAMANTA Administration Fluoxetine HCl 40 mg 07/30/23 22:00 07/30/23 22:39 Fluoxetine Hcl 20 Mg Cap PO 08/29/23 21:59 40 mg HS SAMANTA Administration Gabapentin 200 mg 07/30/23 11:30 07/30/23 22:37 Gabapentin 100 Mg Capsule PO 08/29/23 11:29 200 mg TID SAMANTA Administration Hydromorphone HCl 0.5 mg 07/30/23 11:19 07/30/23 14:31 Hydromorphone 1 Mg/1ml Inj IV 08/04/23 11:18 0.5 mg Q4H PRN PRN Administration PAIN Acyclovir Sodium 900 mg/ 250 mls @ 250 mls/hr 07/30/23 14:00 07/30/23 22:39 Sodium Chloride IV 08/29/23 13:59 250 mls/hr Q8HT SAMANTA Administration Lisinopril 10 mg 07/30/23 22:00 07/30/23 22:39 Lisinopril 10 Mg Tablet PO 08/29/23 21:59 10 mg HS SAMANTA Administration Ondansetron HCl 4 mg 07/30/23 11:19 Ondansetron Hcl 4 Mg/2 Ml Vial IV 08/29/23 11:18 Q6H PRN PRN NAUSEA/VOMITING Pantoprazole Sodium 40 mg 07/30/23 13:00 07/30/23 13:47 Protonix (Pantoprazole) 40 Mg Tablet PO 08/29/23 12:59 40 mg DAILY SAMANTA Administration Prednisone 60 mg 07/30/23 12:00 07/30/23 12:13 Prednisone 20 Mg Tablet PO 08/29/23 11:59 60 mg DAILY SAMANTA Administration Simvastatin 10 mg 07/30/23 22:00 07/31/23 00:12 Simvastatin 10 Mg Tablet PO 08/29/23 21:59 Not Given Q48H SAMANTA Discontinued Medications Generic Name Dose Route Start Last Admin Trade Name Freq PRN Reason Stop Dose Admin Acyclovir 800 mg 07/30/23 08:37 07/30/23 08:45 Acyclovir 800 Mg Tablet PO 07/30/23 08:38 800 mg ONCE STA Administration Acyclovir Sodium 900 mg/ 250 mls @ 250 mls/hr 07/30/23 14:00 Sodium Chloride IV 08/29/23 13:59 Q8HT SAMANTA Ketorolac Tromethamine 30 mg 07/30/23 08:40 07/30/23 08:47 Ketorolac Tromethamine 30 Mg/Ml Inj IM 07/30/23 08:41 30 mg STAT ONE Administration Ketorolac Tromethamine Confirm 07/30/23 08:47 Ketorolac Tromethamine 30 Mg/Ml Inj Administered 07/30/23 08:48 Dose 30 mg .ROUTE .STK-MED ONE Non-Formulary Medication 1 each 07/30/23 11:27 07/30/23 11:51 Pharmacy Dosing Request 07/30/23 11:28 1 each STAT ONE Administration Lab/Rad Data: Laboratory Result Diagrams 07/30/23 10:00 07/30/23 10:00 Laboratory Results 07/30/23 07/30/23 Range/Units 10:00 10:00 WBC 3.1 L (4.0-10.5) x10^3/uL RBC 4.66 (4.1-5.4) x10^6/uL Hgb 13.9 (12.0-16.0) g/dL Hct 42.0 (35-47) % MCV 90.1 (78-100) fL MCH 29.8 (26-32) pg MCHC 33.1 (32-36) g/dL RDW 13.7 (11.5-14.0) % Plt Count 185 (150-450) x10^3/uL MPV 8.8 (7.5-11.0) fL Gran % 61.4 (36.0-66.0) % Immature Gran % (Auto) 0.3 (0.00-0.4) % Nucleat RBC Rel Count 0.0 (0.00-0.1) % Eos # (Auto) 0.03 (0-0.5) x10^3/uL Immature Gran # (Auto) 0.01 (0.00-0.03) x10^3u/L Absolute Lymphs (auto) 0.48 L (1.0-4.6) x10^3/uL Absolute Monos (auto) 0.62 (0.0-1.3) x10^3/uL Absolute Nucleated RBC 0.00 (0.00-0.01) x10^3u/L Lymphocytes % 15.7 L (24.0-44.0) % Monocytes % 20.3 H (0.0-12.0) % Eosinophils % 1.0 (0.00-5.0) % Basophils % 1.3 (0.0-0.4) % Absolute Granulocytes 1.88 (1.4-6.9) x10^3/uL Basophils # 0.04 (0-0.4) x10^3/uL Sodium 135 (135-145) mmol/L Potassium 3.9 (3.5-5.1) mmol/L Chloride 104 (98-107) mmol/L Carbon Dioxide 23 (22-30) mmol/L Anion Gap 12.0 (5-15) MEQ/L BUN 13 (7-17) mg/dL Creatinine 0.72 (0.52-1.04) mg/dL Estimated GFR 89.9 ML/MIN Glucose 110 H (74-106) mg/dL Calcium 9.5 (8.4-10.2) mg/dL Total Bilirubin 0.40 (0.2-1.3) mg/dL AST 37 H (14-36) U/L ALT 39 H (0-35) U/L Alkaline Phosphatase 86 (38-126) U/L Serum Total Protein 7.4 (6.3-8.2) g/dL Albumin 4.5 (3.5-5.0) g/dL Slides for Path Review YES - Progress Progress: improved Progress Note: 68-year-old female presents to our ED for evaluation and treatment of herpes zoster along the C2 dermatome. No fever. No signs of neurologic involvement. No focal or lateralizing symptoms. No significant risk factors for dissemination. Patient not a transplant patient. No history of cancer or leukemia. Viral culture obtained. Due to the multiple dermatomal areas involved we decided to admit patient for concerns of possible dissemination. Case discussed with who accepted admission to observation at 9:50 AM. Plan of care discussed with patient. She agrees to admission to [facility] for further evaluation and treatment. Portions of this note were created with voice recognition technology. There may be grammatical, spelling, punctuation or sound alike errors 07/30/23 08:46 07/30/23 09:56 Complexity problem addressed is moderate acute complicated No critical care time Complex of data reviewed and analyzed is extensive. Test ordered test reviewed results analyzed and correlated clinically with history and physical exam. Valery lott discussed with hospitalist who accepts admission to observation. Risk of complication and or risk of morbidity/mortality is high. Patient requires hospitalization for further evaluation and treatment. Vital stable. Time spent to admit patient is approximately 20 minutes. Plan of care established for shared decision making. No social determinants of health present impede follow-up. Portions of this note were created with voice recognition technology. There may be grammatical, spelling, punctuation or sound alike errors Counseled pt/family regarding: lab results, diagnosis, need for follow-up - Departure Departure Disposition: Home Clinical Impression: Shingles rash Condition: Stable Critical Care Time: No
[2023-07-30 10:10] LABS: Absolute Neutrophil Ct (ANC) 1.88 x10^3/uL (1.4-6.9); BASOPHIL % 1.3 % (0.0-0.4); Basophil (Absolute #) 0.04 x10^3/uL (0-0.4); Eosinophil (Absolute #) 0.03 x10^3/uL (0-0.5); Hemoglobin 13.9 g/dL (12.0-16.0); IMMATURE GRAN # 0.01 x10^3u/L (0.00-0.03); IMMATURE GRAN % 0.3 % (0.00-0.4); Lymphocyte (Absolute #) 0.48 x10^3/uL (1.0-4.6); Lymphocytes % 15.7 % (24.0-44.0); Mean Cell Volume 90.1 fL (78-100); Mean Corpuscular Hemoglobin 29.8 pg (26-32); Mean Corpuscular Hgb Concent. 33.1 g/dL (32-36); Mean Platelet Volume 8.8 fL (7.5-11.0); Monocyte (Absolute #) 0.62 x10^3/uL (0.0-1.3); Monocytes % 20.3 % (0.0-12.0); Neutrophil % 61.4 % (36.0-66.0); Platelet Count 185 x10^3/uL (150-450); Red Blood Count 4.66 x10^6/uL (4.1-5.4); Red Cell Distribution Width 13.7 % (11.5-14.0); White Blood Count 3.1 x10^3/uL (4.0-10.5)
[2023-07-30 10:40] LABS: Slide Review 1 YES
[2023-07-30 10:57] LABS: ALBUMIN 4.5 g/dL (3.5-5.0); BILIRUBIN,TOTAL 0.4 mg/dL (0.2-1.3); Calcium 9.5 mg/dL (8.4-10.2); Creatinine 1 0.72 mg/dL (0.52-1.04); EST GLOMERULAR FILTRATION RATE 89.9 ML/MIN; Potassium 3.9 mmol/L (3.5-5.1); Total Protein 7.4 g/dL (6.3-8.2)
[2023-07-30] MEDS ORDERED: Zofran 4 MG/2 ML VIAL IV PRN (11:19)
[2023-07-30] MEDS ORDERED: TYLENOL 325 MG PO PRN (11:19)
--- NOTE | 2023-07-30 11:44 | PCM.HP ---
History of Present Illness - Chief Complaint Chief Complaint: Shingles Date: 07/30/23 History of Present Illness: is a 68 year old female with a pmhx of HTN, CAD, cardiac stents, [place], GERD, and anxiety who presented to ED 07/30/23 with a four day history of a ra ised red painful rash to her left neck, chest, ear, and back with associated head and ear pain. She also describes parestesias. She describes the pain as constant, moderate in intensity, sharp, and throbbing. Pain is aggravated with movement. No relieving factors. Denies photophobia or fever. Upon exam patient with erythematous, maculopapular rash to left neck, chest, and ear. In ED, patient mildly tachycardic and hypertensive. Lab findings significant for leukopenia with wbc at 3.1 and LFTs mildly elevated. Patient given Acyclovir and Toradol in ED. Patient states her pain was not relieved with Toradol. Admit for shingles. Plan for Acyclovir (Valtrex not available), IV initially. Pain control. - Review of Systems Constitutional: Fatigue Eyes: No Symptoms Ears, Nose, & Throat: Ear Pain Respiratory: No Symptoms Cardiac: No Symptoms Abdominal/Gastrointestinal: No Symptoms Genitourinary Symptoms: No Symptoms Musculoskeletal: No Symptoms Skin: Rash ( erythematous, maculopapular rash to left neck, chest, and ear. ) Neurological: Parasthesia (to left ear/neck) Psychological: No Symptoms Endocrine: No Symptoms Hematologic/Lymphatic: No Symptoms Immunological/Allergic: No Symptoms Medications & Allergies Home Medications: Home Medication List Fluoxetine HCl 10 mg [Prozac 10 mg] 40 mg PO HS 12/26/15 [History Confirmed 07/30/23] Lisinopril 10 mg [Zestril 10 MG] 10 mg PO HS 10/22/16 [History Confirmed 07/30/23] Budesonide/Formoterol Fumarate [Symbicort 160-4.5 Mcg Inhaler] 6 gm IH DAILY 08/28/18 [History Confirmed 07/30/23] Ergocalciferol (Vitamin D2) [Vitamin D] 50,000 unit PO WEEKLY 08/28/18 [History Confirmed 07/30/23] Famotidine 20 mg [Pepcid 20 MG] 60 mg PO HS 09/18/18 [History Confirmed 07/30/23] Pravastatin Sodium 10 mg PO UD 04/23/19 [History Confirmed 07/30/23] Amlodipine Besylate 10 mg PO HS 11/16/22 [History Confirmed 07/30/23] Aspirin [Aspirin EC] 81 mg PO HS 11/16/22 [History Confirmed 07/30/23] Omeprazole 40 mg PO DAILY 11/16/22 [History Confirmed 07/30/23] clonazePAM [Clonazepam] 0.5 mg PO HS 11/16/22 [History Confirmed 07/30/23] Allergies/Adverse Reactions: Allergies Allergy/AdvReac Type Severity Reaction Status Date / Time cephalexin monohydrate AdvReac Severe Verified 07/30/23 10:58 [From Keflex] Sulfa (Sulfonamide AdvReac Severe Nausea and Verified 07/30/23 10:58 Antibiotics) Vomiting cephalexin [From Keflex] AdvReac Sore Throat Verified 07/30/23 10:58 - Past Medical History Past Medical History: Yes Neurological History: No Pertinent History ENT History: No Pertinent History Cardiac History: Coronary Artery Disease, Hypertension, Myocardial Infarction ([place]) Respiratory History: Bronchitis Endocrine Medical History: No Pertinent History Musculoskelatal History: Osteoarthritis GI Medical History: GERD History: No Pertinent History Pyscho-Social History: Anxiety Reproductive Disorders: Other Comment: ANXIETY, kidney stones - Female History Are you now?: No - Past Surgical History Past Surgical History: Yes Neuro Surgical History: No Pertinent History Cardiac History: No Pertinent History Respiratory Surgery: No Pertinent History GI Surgical History: Appendectomy Genitourinary Surgical Hx: Kidney Surgery Musculskeletal Surgical Hx: Joint Replacement Female Surgical History: No Pertinent History Other Surgical History: TONSILS, cardiac stent x L knee - Social History Smoking Status: Never smoker Exposure to second hand smoke: No Alcohol: None Drug Use: none - Social Determinants of Health Will the patient participate in the screening: Yes Do you worry about a steady place to live?: No Do you have any problems with any of the following?: No known problems In the past 12 months,have you had to go without utilities?: No Have you or anyone in your house had to go without enough: No Transportation Issues: No Has anyone in your support network made you feel unsafe?: No Does the patient want assistance with any of the above?: No - Physical Exam Vital Signs: Vital Signs - 24 hr Temp Pulse Resp BP BP Pulse Ox 07/30/23 11:07 97.8 F 87 16 175/88 98 07/30/23 10:56 96 07/30/23 10:00 77 154/86 97 07/30/23 09:30 155/83 98 07/30/23 09:19 77 197/90 96 07/30/23 09:00 177/87 07/30/23 08:30 161/71 97 07/30/23 08:19 181/90 96 07/30/23 08:18 96.5 F 100 H 22 181/90 96 General Appearance: no apparent distress Neurologic Exam: alert, oriented x 3, cooperative Eye Exam: PERRL/EOMI Ears, Nose, Throat Exam: other ( erythematous, maculopapular rash to left neck, chest, and ear.) Neck Exam: other ( erythematous, maculopapular rash to left neck, chest, and ear.) Respiratory Exam: normal breath sounds, lungs clear Cardiovascular Exam: regular rate/rhythm, normal heart sounds Gastrointestinal/Abdomen Exam: soft, normal bowel sounds Pelvic Exam: not done Rectal Exam: deferred Back Exam: rash (Upper left back) Extremity Exam: normal inspection Skin Exam: rash ( erythematous, maculopapular rash to left neck, chest, and ear.) Results - Labs Lab/Micro Results: Lab Results-Last 24 Hours 07/30/23 07/30/23 Range/Units 10:00 10:00 WBC 3.1 L (4.0-10.5) x10^3/uL RBC 4.66 (4.1-5.4) x10^6/uL Hgb 13.9 (12.0-16.0) g/dL Hct 42.0 (35-47) % MCV 90.1 (78-100) fL MCH 29.8 (26-32) pg MCHC 33.1 (32-36) g/dL RDW 13.7 (11.5-14.0) % Plt Count 185 (150-450) x10^3/uL MPV 8.8 (7.5-11.0) fL Gran % 61.4 (36.0-66.0) % Immature Gran % (Auto) 0.3 (0.00-0.4) % Nucleat RBC Rel Count 0.0 (0.00-0.1) % Eos # (Auto) 0.03 (0-0.5) x10^3/uL Immature Gran # (Auto) 0.01 (0.00-0.03) x10^3u/L Absolute Lymphs (auto) 0.48 L (1.0-4.6) x10^3/uL Absolute Monos (auto) 0.62 (0.0-1.3) x10^3/uL Absolute Nucleated RBC 0.00 (0.00-0.01) x10^3u/L Lymphocytes % 15.7 L (24.0-44.0) % Monocytes % 20.3 H (0.0-12.0) % Eosinophils % 1.0 (0.00-5.0) % Basophils % 1.3 (0.0-0.4) % Absolute Granulocytes 1.88 (1.4-6.9) x10^3/uL Basophils # 0.04 (0-0.4) x10^3/uL Sodium 135 (135-145) mmol/L Potassium 3.9 (3.5-5.1) mmol/L Chloride 104 (98-107) mmol/L Carbon Dioxide 23 (22-30) mmol/L Anion Gap 12.0 (5-15) MEQ/L BUN 13 (7-17) mg/dL Creatinine 0.72 (0.52-1.04) mg/dL Estimated GFR 89.9 ML/MIN Glucose 110 H (74-106) mg/dL Calcium 9.5 (8.4-10.2) mg/dL Total Bilirubin 0.40 (0.2-1.3) mg/dL AST 37 H (14-36) U/L ALT 39 H (0-35) U/L Alkaline Phosphatase 86 (38-126) U/L Serum Total Protein 7.4 (6.3-8.2) g/dL Albumin 4.5 (3.5-5.0) g/dL Slides for Path Review YES Assessment/Plan (1) Shingles rash Current Visit: Yes Status: Acute Assessment & Plan: -Acyclovir -Gabapentin 200mg TID, will adjust as needed -Pain control with [place]/diluadid, will adjust as needed -viral culture pending -prednisone 60mg daily Code(s): B02.9 - ZOSTER WITHOUT COMPLICATIONS (2) HTN (hypertension) Current Visit: Yes Status: Acute Assessment & Plan: -continue home meds amlodipine/lisinopril Code(s): I10 - ESSENTIAL (PRIMARY) HYPERTENSION (3) CAD (coronary artery disease) Current Visit: Yes Status: Acute Assessment & Plan: -noted, continue appropriate home medications Code(s): I25.10 - ATHSCL HEART DISEASE OF [place] CORONARY ARTERY W/O ANG PCTRS (4) Anxiety Current Visit: Yes Status: Acute Assessment & Plan: -continue home meds prozac/clonazepam VTE: lovenox PPI: protonix Dispo: 1-2 days Code(s): F41.9 - ANXIETY DISORDER, UNSPECIFIED
[2023-07-30] MEDS: NORCO 10-325 MG PO PRN (11:48)
[2023-07-30] MEDS: Neurontin PO SCH (11:48)
[2023-07-30] MEDS: PHARMACY DOSING REQUEST MC ONE (11:51)
[2023-07-30] MEDS ORDERED: NON-FORMULARY ITEM (Pravastatin Sodium [Pravastatin Sodium] 10 MG Tablet) PO SCH (12:00)
[2023-07-30] MEDS: DELTASONE 20 MG PO SCH (12:13)
[2023-07-30] MEDS: ZOVIRAX IV SCH (13:47)
[2023-07-30] MEDS: Protonix 40MG Tablet PO SCH (13:47)
[2023-07-30] MEDS: SODIUM CHLORIDE 0.9% IV SCH (13:47)
[2023-07-30] MEDS ORDERED: ZOVIRAX IV SCH (14:00)
[2023-07-30] MEDS ORDERED: SODIUM CHLORIDE 0.9% IV SCH (14:00)
[2023-07-30] MEDS: Hydromorphone 1 mg/ml Injection IV PRN (14:31)
[2023-07-30] MEDS ORDERED: NON-FORMULARY ITEM (Clonazepam [Clonazepam] 0.5 MG Tab.Rapdis) PO SCH (22:00)
[2023-07-30] MEDS ORDERED: NON-FORMULARY ITEM (Amlodipine Besylate [Amlodipine Besylate] 10 MG Tablet) PO SCH (22:00)
[2023-07-30] MEDS ORDERED: PROZAC 10 MG PO SCH (22:00)
[2023-07-30] MEDS: Pepcid 20 MG PO SCH (22:37)
[2023-07-30] MEDS: NORVASC 5 MG PO SCH (22:38)
[2023-07-30] MEDS: ECOTRIN 81 MG PO SCH (22:38)
[2023-07-30] MEDS: clonazePAM PO SCH (22:39)
[2023-07-30] MEDS: Zestril 10 MG PO SCH (22:39)
[2023-07-30] MEDS: Prozac 20 MG PO SCH (22:39)
[2023-07-31] MEDS: Zocor 10MG PO SCH (00:12)
[2023-07-31 04:58] LABS: Absolute Neutrophil Ct (ANC) 1.58 x10^3/uL (1.4-6.9); BASOPHIL % 0.4 % (0.0-0.4); Basophil (Absolute #) 0.01 x10^3/uL (0-0.4); Eosinophil (Absolute #) 0 x10^3/uL (0-0.5); Hematocrit 40.6 % (35-47); Hemoglobin 13.8 g/dL (12.0-16.0); IMMATURE GRAN # 0.01 x10^3u/L (0.00-0.03); IMMATURE GRAN % 0.4 % (0.00-0.4); Lymphocyte (Absolute #) 0.47 x10^3/uL (1.0-4.6); Lymphocytes % 18.3 % (24.0-44.0); Mean Corpuscular Hemoglobin 30.9 pg (26-32); Mean Platelet Volume 8.8 fL (7.5-11.0); Monocytes % 19.5 % (0.0-12.0); Neutrophil % 61.4 % (36.0-66.0); Platelet Count 201 x10^3/uL (150-450); Red Blood Count 4.46 x10^6/uL (4.1-5.4); Red Cell Distribution Width 13.6 % (11.5-14.0); White Blood Count 2.6 x10^3/uL (4.0-10.5)
[2023-07-31 05:21] LABS: ANION GAP 11.8 MEQ/L (5-15); BILIRUBIN,TOTAL 0.3 mg/dL (0.2-1.3); Calcium 9.1 mg/dL (8.4-10.2); Creatinine 1 0.77 mg/dL (0.52-1.04); EST GLOMERULAR FILTRATION RATE 82.9 ML/MIN; Potassium 4.2 mmol/L (3.5-5.1)
[2023-07-31 08:26] LABS: Slide Review 1 YES
[2023-07-31] MEDS: VITAMIN D2 PO SCH (09:38)
[2023-07-31] MEDS: ENOXAPARIN SODIUM SQ SCH (09:38)
[2023-07-31] MEDS ORDERED: NON-FORMULARY ITEM (Omeprazole [Omeprazole] 40 MG Capsule.Dr) PO SCH (10:00)
--- NOTE | 2023-07-31 12:43 | PCM.NOTE ---
Date and Time: 07/31/23 1236 Subjective Assessment: is a 68 year old female with a pmhx of HTN, CAD, cardiac stents, [place], GERD, and anxiety who presented to ED 07/30/23 with a four day history of a raised red painful rash to her left neck, chest, ear, and back with associated head and ear pain. Admitted with shingles. Current treatment with acyclovir, pain control, prednisone. 07/31/23: Met with patient bedside. Endorses improvement in pain. Currently rating at 6/10 but states she feels current pain regimen is effective, no adjustments needed. N o progression of rash. Vessicles with cloudy fluid. No crusting. Denies fever,cough, sob, cp, abdominal pain, BILL, dizziness, N/V/D. - Review of Systems Constitutional: No Symptoms Eyes: No Symptoms Ears, Nose, & Throat: Ear Pain Respiratory: No Symptoms Cardiac: No Symptoms Abdominal/Gastrointestinal: No Symptoms Genitourinary Symptoms: No Symptoms Musculoskeletal: No Symptoms Skin: No Symptoms Neurological: No Symptoms Psychological: No Symptoms Endocrine: No Symptoms Hematologic/Lymphatic: No Symptoms Immunological/Allergic: No Symptoms Objective Exam General Appearance: no apparent distress Neurologic Exam: alert, oriented x 3, cooperative Skin Exam: rash (erythematous, maculopapular rash to left neck, chest, and ear.)) Wound Assessment: Skin/Wound Assessment Wound/Incision Assessment Start: 07/30/23 11:24 Text: Status: Active Freq: Q6H Protocol: Document 07/31/23 09:00 [facility] (Rec: 07/31/23 09:28 [facility] [id number]) Wound/Incision Assessment Left Wound Assessment Shift Assessment Wound Type Shingles Wound Stage Non Pressure Wound Drainage Amount Minimal Drainage Description Yellow Drainage Odor None/Absent General Appearance Open to air,Draining Comment Left ear, neck, face, and posterior base of scalp with minimal yellow drainage, open to air. Remains true. Wound Photo Photo Taken No Date: 07/30/23 Time: 11:30 Comment: Placed in chart on admission Eye Exam: PERRL Ears, Nose, Throat Exam: moist mucous membranes Neck Exam: full range of motion Respiratory Exam: normal breath sounds, lungs clear Cardiovascular Exam: regular rate/rhythm, normal heart sounds Gastrointestinal/Abdomen Exam: soft, normal bowel sounds Extremity Exam: normal inspection Back Exam: normal range of motion Pelvic Exam: deferred Rectal Exam: deferred Objective Data Vital Signs: Vital Signs - 24 hr Temp Pulse Resp BP Pulse Ox 07/31/23 11:29 97.6 F 84 16 151/80 96 07/31/23 08:00 97.6 F 75 16 134/75 100 07/31/23 04:00 98.3 F 96 H 18 159/73 95 07/31/23 01:33 96 07/31/23 00:00 97.5 F 85 16 145/68 92 L 07/30/23 20:00 98.3 F 75 17 151/76 95 07/30/23 15:18 99.4 F 91 H 18 131/67 96 Pain Assessment - Last Documented Pain Intensity 7 Pain Scale Used 0-10 Pain Scale Intake and Output: Intake & Output 07/29/23 07/30/23 07/31/23 08/01/23 11:59 11:59 11:59 11:59 Intake Total 1910 Output Total 1800 Balance 110 Weight 90.7 kg Lab Results: Lab Results-Last 24 Hours 07/31/23 07/31/23 Range/Units 04:30 04:30 WBC 2.6 L (4.0-10.5) x10^3/uL RBC 4.46 (4.1-5.4) x10^6/uL Hgb 13.8 (12.0-16.0) g/dL Hct 40.6 (35-47) % MCV 91.0 (78-100) fL MCH 30.9 (26-32) pg MCHC 34.0 (32-36) g/dL RDW 13.6 (11.5-14.0) % Plt Count 201 (150-450) x10^3/uL MPV 8.8 (7.5-11.0) fL Gran % 61.4 (36.0-66.0) % Immature Gran % (Auto) 0.4 (0.00-0.4) % Nucleat RBC Rel Count 0.0 (0.00-0.1) % Eos # (Auto) 0 (0-0.5) x10^3/uL Immature Gran # (Auto) 0.01 (0.00-0.03) x10^3u/L Absolute Lymphs (auto) 0.47 L (1.0-4.6) x10^3/uL Absolute Monos (auto) 0.50 (0.0-1.3) x10^3/uL Absolute Nucleated RBC 0.00 (0.00-0.01) x10^3u/L Lymphocytes % 18.3 L (24.0-44.0) % Monocytes % 19.5 H (0.0-12.0) % Eosinophils % 0.0 (0.00-5.0) % Basophils % 0.4 (0.0-0.4) % Absolute Granulocytes 1.58 (1.4-6.9) x10^3/uL Basophils # 0.01 (0-0.4) x10^3/uL Sodium 134 L (135-145) mmol/L Potassium 4.2 (3.5-5.1) mmol/L Chloride 103 (98-107) mmol/L Carbon Dioxide 23 (22-30) mmol/L Anion Gap 11.8 (5-15) MEQ/L BUN 20 H (7-17) mg/dL Creatinine 0.77 (0.52-1.04) mg/dL Estimated GFR 82.9 ML/MIN Glucose 118 H (74-106) mg/dL Calcium 9.1 (8.4-10.2) mg/dL Total Bilirubin 0.30 (0.2-1.3) mg/dL AST 38 H (14-36) U/L ALT 42 H (0-35) U/L Alkaline Phosphatase 73 (38-126) U/L Serum Total Protein 7.0 (6.3-8.2) g/dL Albumin 4.0 (3.5-5.0) g/dL Slides for Path Review YES Assessment/Plan (1) Shingles rash Current Visit: Yes Status: Acute Assessment & Plan: -Acyclovir -Gabapentin 200mg TID, will adjust as needed -Pain control with [place]/diluadid, will adjust as needed -viral culture pending -prednisone 60mg daily 07/30: -Clear vessicles with cloudy fluid -Pain improvement -continue steroids x 5 days, will taper -Pain control Code(s): B02.9 - ZOSTER WITHOUT COMPLICATIONS (2) HTN (hypertension) Current Visit: Yes Status: Acute Assessment & Plan: -continue home meds amlodipine/lisinopril Code(s): I10 - ESSENTIAL (PRIMARY) HYPERTENSION (3) CAD (coronary artery disease) Current Visit: Yes Status: Acute Assessment & Plan: -noted, continue appropriate home medications Code(s): I25.10 - ATHSCL HEART DISEASE OF [place] CORONARY ARTERY W/O ANG PCTRS (4) Anxiety Current Visit: Yes Status: Acute Assessment & Plan: -continue home meds prozac/clonazepam Code(s): B02.9 - ZOSTER WITHOUT COMPLICATIONS (2) HTN (hypertension) Current Visit: Yes Status: Acute Code(s): I10 - ESSENTIAL (PRIMARY) HYPERTENSION (3) CAD (coronary artery disease) Current Visit: Yes Status: Acute Code(s): I25.10 - ATHSCL HEART DISEASE OF [place] CORONARY ARTERY W/O ANG PCTRS (4) Anxiety Current Visit: Yes Status: Acute Code(s): F41.9 - ANXIETY DISORDER, UNSPECIFIED
[2023-07-31] MEDS: NORCO 10-325 MG PO PRN (17:13)
[2023-07-31] MEDS: clonazePAM PO PRN (17:33)
[2023-07-31] MEDS: ACYCLOVIR PO SCH (18:35)
[2023-08-01 05:20] LABS: Absolute Neutrophil Ct (ANC) 2.28 x10^3/uL (1.4-6.9); BASOPHIL % 0.5 % (0.0-0.4); Basophil (Absolute #) 0.02 x10^3/uL (0-0.4); Eosinophil (Absolute #) 0 x10^3/uL (0-0.5); Hematocrit 36.9 % (35-47); Hemoglobin 12.3 g/dL (12.0-16.0); Lymphocyte (Absolute #) 0.83 x10^3/uL (1.0-4.6); Lymphocytes % 22.1 % (24.0-44.0); Mean Cell Volume 89.6 fL (78-100); Mean Corpuscular Hemoglobin 29.9 pg (26-32); Mean Corpuscular Hgb Concent. 33.3 g/dL (32-36); Mean Platelet Volume 9.1 fL (7.5-11.0); Monocyte (Absolute #) 0.63 x10^3/uL (0.0-1.3); Monocytes % 16.8 % (0.0-12.0); Neutrophil % 60.6 % (36.0-66.0); Platelet Count 191 x10^3/uL (150-450); Red Blood Count 4.12 x10^6/uL (4.1-5.4); Red Cell Distribution Width 13.9 % (11.5-14.0); White Blood Count 3.8 x10^3/uL (4.0-10.5)
[2023-08-01 08:04] LABS: ALBUMIN 3.5 g/dL (3.5-5.0); ANION GAP 9.2 MEQ/L (5-15); BILIRUBIN,TOTAL 0.2 mg/dL (0.2-1.3); Calcium 8.6 mg/dL (8.4-10.2); Creatinine 1 0.75 mg/dL (0.52-1.04); EST GLOMERULAR FILTRATION RATE 85.6 ML/MIN; Potassium 4.1 mmol/L (3.5-5.1); Total Protein 6.1 g/dL (6.3-8.2)
[2023-08-01] MEDS: Neurontin PO ONE (09:32)
--- NOTE | 2023-08-01 10:54 | PCM.NOTE ---
Date and Time: 08/01/23 1048 Subjective Assessment: is a 68 year old female with a pmhx of HTN, CAD, cardiac stents, [place], GERD, and anxiety who presented to ED 07/30/23 with a four day history of a raised red painful rash to her left neck, chest, ear, and back with associated head and ear pain. Admitted with shingles. Current treatment with acyclovir, pain control, prednisone. 07/31/23: Met with patient bedside. Endorses improvement in pain. Currently rating at 6/10 but states she feels current pain regimen is effective, no adjustments needed. N o progression of rash. Vessicles with cloudy fluid. No crusting. Denies fever,cough, sob, cp, abdominal pain, BILL, dizziness, N/V/D. 08/01/23: Met and examined patient bedside. Endorses increased pain overnight with trouble sleeping. Progression of rash with multiple cloudy fluid filled vesicles, some with rupture, no crusting. No hearing loss. Denies fever,cough, sob, cp, abdominal pain, BILL, dizziness, N/V/D. - Review of Systems Constitutional: Weakness Eyes: No Symptoms Ears, Nose, & Throat: Ear Pain Respiratory: No Symptoms Cardiac: No Symptoms Abdominal/Gastrointestinal: No Symptoms Genitourinary Symptoms: No Symptoms Musculoskeletal: No Symptoms Skin: Rash (erythematous, maculopapular rash to left neck, chest, and ear) Neurological: No Symptoms Psychological: Anxiety Endocrine: No Symptoms Hematologic/Lymphatic: No Symptoms Immunological/Allergic: No Symptoms Objective Exam General Appearance: mild distress Neurologic Exam: alert, oriented x 3, cooperative Skin Exam: rash (erythematous, maculopapular rash to left neck, chest, and ear) Wound Assessment: Skin/Wound Assessment Wound/Incision Assessment Start: 07/30/23 11:24 Text: Status: Active Freq: Q6H Protocol: Document 08/01/23 08:30 [facility] (Rec: 08/01/23 08:30 [facility] [id number]) Wound/Incision Assessment Left Wound Assessment Shift Assessment Wound Type Shingles Wound Stage Non Pressure Wound Drainage Amount Minimal Drainage Description Yellow Drainage Odor None/Absent General Appearance Open to air,Draining Comment Left ear, neck, face, and posterior base of scalp with minimal yellow drainage, open to air. Remains true. Wound Photo Photo Taken No Date: 07/30/23 Time: 11:30 Comment: Placed in chart on admission Eye Exam: PERRL Ears, Nose, Throat Exam: moist mucous membranes Neck Exam: full range of motion Respiratory Exam: normal breath sounds, lungs clear Cardiovascular Exam: regular rate/rhythm, normal heart sounds Gastrointestinal/Abdomen Exam: soft, normal bowel sounds Extremity Exam: normal inspection Back Exam: normal inspection Pelvic Exam: deferred Rectal Exam: deferred Objective Data Vital Signs: Vital Signs - 24 hr Temp Pulse Resp BP Pulse Ox 08/01/23 07:00 97.6 F 93 H 17 139/78 94 L 08/01/23 03:00 97.9 F 87 18 170/86 96 07/31/23 23:39 97.8 F 90 18 149/90 95 07/31/23 20:00 97.6 F 86 17 150/80 96 07/31/23 16:00 98.3 F 92 H 16 182/81 96 07/31/23 11:29 97.6 F 84 16 151/80 96 Pain Assessment - Last Documented Pain Intensity 7 Pain Scale Used 0-10 Pain Scale Intake and Output: Intake & Output 07/29/23 07/30/23 07/31/23 08/01/23 11:59 11:59 11:59 11:59 Intake Total 1910 2510 Output Total 1800 1700 Balance 110 810 Weight 90.7 kg Lab Results: Lab Results-Last 24 Hours 08/01/23 08/01/23 Range/Units 04:50 04:50 WBC 3.8 L (4.0-10.5) x10^3/uL RBC 4.12 (4.1-5.4) x10^6/uL Hgb 12.3 (12.0-16.0) g/dL Hct 36.9 (35-47) % MCV 89.6 (78-100) fL MCH 29.9 (26-32) pg MCHC 33.3 (32-36) g/dL RDW 13.9 (11.5-14.0) % Plt Count 191 (150-450) x10^3/uL MPV 9.1 (7.5-11.0) fL Gran % 60.6 (36.0-66.0) % Immature Gran % (Auto) 0.0 (0.00-0.4) % Nucleat RBC Rel Count 0.0 (0.00-0.1) % Eos # (Auto) 0 (0-0.5) x10^3/uL Immature Gran # (Auto) 0.00 (0.00-0.03) x10^3u/L Absolute Lymphs (auto) 0.83 L (1.0-4.6) x10^3/uL Absolute Monos (auto) 0.63 (0.0-1.3) x10^3/uL Absolute Nucleated RBC 0.00 (0.00-0.01) x10^3u/L Lymphocytes % 22.1 L (24.0-44.0) % Monocytes % 16.8 H (0.0-12.0) % Eosinophils % 0.0 (0.00-5.0) % Basophils % 0.5 (0.0-0.4) % Absolute Granulocytes 2.28 (1.4-6.9) x10^3/uL Basophils # 0.02 (0-0.4) x10^3/uL Sodium 135 (135-145) mmol/L Potassium 4.1 (3.5-5.1) mmol/L Chloride 103 (98-107) mmol/L Carbon Dioxide 27 (22-30) mmol/L Anion Gap 9.2 (5-15) MEQ/L BUN 19 H (7-17) mg/dL Creatinine 0.75 (0.52-1.04) mg/dL Estimated GFR 85.6 ML/MIN Glucose 103 (74-106) mg/dL Calcium 8.6 (8.4-10.2) mg/dL Total Bilirubin 0.20 (0.2-1.3) mg/dL AST 37 H (14-36) U/L ALT 45 H (0-35) U/L Alkaline Phosphatase 68 (38-126) U/L Serum Total Protein 6.1 L (6.3-8.2) g/dL Albumin 3.5 (3.5-5.0) g/dL Assessment/Plan (1) Shingles rash Current Visit: Yes Status: Acute Assessment & Plan: -Acyclovir -Gabapentin 200mg TID, will adjust as needed -Pain control with [place]/diluadid, will adjust as needed -viral culture pending -prednisone 60mg daily 4/17: -Clear vessicles with cloudy fluid -Pain improvement -continue steroids x 5 days, will taper -Pain control 07/31: -increase gabapentin to 300mg TID -continue norco/prednisone -add trazadone for sleep Code(s): B02.9 - ZOSTER WITHOUT COMPLICATIONS (2) HTN (hypertension) Current Visit: Yes Status: Acute Assessment & Plan: -continue home meds amlodipine/lisinopril Code(s): I10 - ESSENTIAL (PRIMARY) HYPERTENSION (3) CAD (coronary artery disease) Current Visit: Yes Status: Acute Assessment & Plan: -noted, continue appropriate home medications Code(s): I25.10 - ATHSCL HEART DISEASE OF [place] CORONARY ARTERY W/O ANG PCTRS (4) Anxiety Current Visit: Yes Status: Acute Assessment & Plan: -continue home meds prozac/clonazepam Code(s): B02.9 - ZOSTER WITHOUT COMPLICATIONS (2) HTN (hypertension) Current Visit: Yes Status: Acute Code(s): I10 - ESSENTIAL (PRIMARY) HYPERTENSION (3) CAD (coronary artery disease) Current Visit: Yes Status: Acute Code(s): I25.10 - ATHSCL HEART DISEASE OF [place] CORONARY ARTERY W/O ANG PCTRS (4) Anxiety Current Visit: Yes Status: Acute Code(s): F41.9 - ANXIETY DISORDER, UNSPECIFIED
[2023-08-01] MEDS: Neurontin PO SCH (15:24)
[2023-08-02 04:23] VITALS: RESP 16; TEMP 97.9
[2023-08-02 05:37] LABS: Hematocrit 38.8 % (35-47); Hemoglobin 12.9 g/dL (12.0-16.0); Mean Cell Volume 92.4 fL (78-100); Mean Corpuscular Hemoglobin 30.7 pg (26-32); Mean Corpuscular Hgb Concent. 33.2 g/dL (32-36); Mean Platelet Volume 9.2 fL (7.5-11.0); Platelet Count 208 x10^3/uL (150-450); Red Cell Distribution Width 14.1 % (11.5-14.0); White Blood Count 4.9 x10^3/uL (4.0-10.5)
[2023-08-02 05:57] LABS: ALBUMIN 3.9 g/dL (3.5-5.0); ANION GAP 9.1 MEQ/L (5-15); BILIRUBIN,TOTAL 0.3 mg/dL (0.2-1.3); Calcium 8.9 mg/dL (8.4-10.2); Creatinine 1 0.8 mg/dL (0.52-1.04); EST GLOMERULAR FILTRATION RATE 79.2 ML/MIN; Potassium 4.2 mmol/L (3.5-5.1); Total Protein 6.8 g/dL (6.3-8.2)
[2023-08-02 06:38] LABS: Lymphocytes 44 % (24-44); Monocyte 11 % (0.0-12.0); Neutrophils 45 % (36.0-66.0); Platelet Estimate NORMAL (NORMAL); Total Cells Counted 100
[2023-08-02] MEDS: NEURONTIN PO SCH (10:48)
[2023-08-02 11:23] VITALS: BP 135/69; PULSE 75; O2SAT 96
--- NOTE | 2023-08-02 11:45 | PCM.DS ---
Discharge Summary Date of Admission: 07/31/23 09:45 Date of Discharge: 08/02/23 Admitting Physician: ANNABEL PALACIO MD Primary Care Provider: JASONNISHANT FRANKLIN Allergies Allergies cephalexin monohydrate [From Keflex] Adverse Reaction (Severe, Verified 07/30/23 10:58) Sulfa (Sulfonamide Antibiotics) Adverse Reaction (Severe, Verified 07/30/23 10:58) Nausea and Vomiting cephalexin [From Keflex] Adverse Reaction (Verified 07/30/23 10:58) Sore Throat Hospital Summary - Hospital Course Hospital Course: is a 68 year old female with a pmhx of HTN, CAD, cardiac stents, [place], GERD, and anxiety who presented to ED 07/30/23 with a four day history of a raised red painful rash to her left neck, chest, ear, and back with associated head and ear pain. Admitted with shingles. IP treatment with acyclovir, pain control, prednisone. Pain is controlled with current pain regimen. Advised follow up with PCP for continued pain control. Will send home on acyclovir 800mg, five times daily for the completion of this evening and four more days following. Prednisone 60mg for one more day. Gabapentin 300mg po TID. [place] 5/325mg q4 prn x 3 day supply. Discharge Note New Diagnosis: Shingles New Medications:acyclovir 800mg, five times daily for the completion of this evening and four more days following. Prednisone 60mg for one more day. Gabapentin 300mg po TID. [place] 5/325mg q4 prn x 3 day supply. Follow Up: pcp Latest Assessment & Plan (1) Shingles rash Current Visit: Yes Status: Acute Assessment & Plan: -Acyclovir -Gabapentin 200mg TID, will adjust as needed -Pain control with [place]/diluadid, will adjust as needed -viral culture pending -prednisone 60mg daily 07/30: -Clear vessicles with cloudy fluid -Pain improvement -continue steroids x 5 days, will taper -Pain control 07/31: -increase gabapentin to 300mg TID -continue norco/prednisone -add trazadone for sleep Code(s): B02.9 - ZOSTER WITHOUT COMPLICATIONS (2) HTN (hypertension) Current Visit: Yes Status: Acute Assessment & Plan: -continue home meds amlodipine/lisinopril Code(s): I10 - ESSENTIAL (PRIMARY) HYPERTENSION (3) CAD (coronary artery disease) Current Visit: Yes Status: Acute Assessment & Plan: -noted, continue appropriate home medications Code(s): I25.10 - ATHSCL HEART DISEASE OF [place] CORONARY ARTERY W/O ANG PCTRS (4) Anxiety Current Visit: Yes Status: Acute Assessment & Plan: -continue home meds prozac/clonazepam I spent 35 minutes [id number] with the patient on the day of discharge performing discharge exam, discussing hospital stay and discharge instructions with patient and caregivers, preparation of discharge records, prescriptions & referral forms and addressing any questions/concerns the patient had as documented above. - Vitals & Intake/Output Vital Signs: Vital Signs Temperature 97.9 F 08/02/23 11:00 Pulse Rate 75 08/02/23 11:00 Respiratory Rate 16 08/02/23 11:00 Blood Pressure 135/69 08/02/23 11:00 O2 Sat by Pulse Oximetry 96 08/02/23 11:00 Intake & Output: Intake & Output 07/30/23 07/31/23 08/01/23 08/02/23 11:59 11:59 11:59 11:59 Intake Total 1910 2510 1810 Output Total 1800 1700 2850 Balance 110 810 -1040 Weight 90.7 kg - Lab Result Diagrams: 08/02/23 04:50 08/02/23 04:50 Lab Results-Last 24 Hrs: Lab Results-Last 24 Hours 08/02/23 08/02/23 Range/Units 04:50 04:50 WBC 4.9 (4.0-10.5) x10^3/uL RBC 4.20 (4.1-5.4) x10^6/uL Hgb 12.9 (12.0-16.0) g/dL Hct 38.8 (35-47) % MCV 92.4 (78-100) fL MCH 30.7 (26-32) pg MCHC 33.2 (32-36) g/dL RDW 14.1 H (11.5-14.0) % Plt Count 208 (150-450) x10^3/uL MPV 9.2 (7.5-11.0) fL Segmented Neutrophils 45 (36.0-66.0) % Lymphocytes (Manual) 44 (24-44) % Monocytes (Manual) 11 (0.0-12.0) % Platelet Estimate NORMAL (NORMAL) RBC Morphology NORMAL Sodium 135 (135-145) mmol/L Potassium 4.2 (3.5-5.1) mmol/L Chloride 102 (98-107) mmol/L Carbon Dioxide 29 (22-30) mmol/L Anion Gap 9.1 (5-15) MEQ/L BUN 21 H (7-17) mg/dL Creatinine 0.80 (0.52-1.04) mg/dL Estimated GFR 79.2 ML/MIN Glucose 104 (74-106) mg/dL Calcium 8.9 (8.4-10.2) mg/dL Total Bilirubin 0.30 (0.2-1.3) mg/dL AST 35 (14-36) U/L ALT 46 H (0-35) U/L Alkaline Phosphatase 79 (38-126) U/L Serum Total Protein 6.8 (6.3-8.2) g/dL Albumin 3.9 (3.5-5.0) g/dL Discharge Exam General Appearance: no apparent distress Neurologic Exam: alert, oriented x 3, cooperative Eye Exam: PERRL Ears, Nose, Throat Exam: moist mucous membranes Neck Exam: full range of motion Respiratory Exam: normal breath sounds, lungs clear Cardiovascular Exam: regular rate/rhythm, normal heart sounds Gastrointestinal/Abdomen Exam: soft, normal bowel sounds Pelvic Exam: deferred Rectal Exam: deferred Back Exam: normal inspection Extremity Exam: normal inspection Skin Exam: rash, other (erythematous, maculopapular rash to left neck, chest, and ear) Wound Assessment: Skin/Wound Assessment Wound/Incision Assessment Start: 07/30/23 11:24 Text: Status: Active Freq: Q6H Protocol: Document 08/02/23 08:00 (Rec: 08/02/23 09:57 [id number]) Wound/Incision Assessment Left Wound Assessment Shift Assessment Wound Type Shingles Wound Stage Non Pressure Wound Drainage Amount Minimal Drainage Description Yellow Drainage Odor None/Absent General Appearance Open to air,Draining Comment Left ear, neck, face, and posterior base of scalp with minimal yellow drainage, open to air-Remains true. Wound Photo Photo Taken Yes Date: 07/30/23 Time: 11:30 Comment: Placed in chart on admission Final Diagnosis/Problem List - Final Discharge Diagnosis/Problem (1) Shingles rash Current Visit: Yes Status: Acute Code(s): B02.9 - ZOSTER WITHOUT COMPLICATI ONS (2) HTN (hypertension) Current Visit: Yes Status: Acute Code(s): I10 - ESSENTIAL (PRIMARY) HYPERTENSION (3) CAD (coronary artery disease) Current Visit: Yes Status: Acute Code(s): I25.10 - ATHSCL HEART DISEASE OF [place] CORONARY ARTERY W/O ANG PCTRS (4) Anxiety Current Visit: Yes Status: Acute Code(s): F41.9 - ANXIETY DISORDER, UNSPECIFIED - Discharge Disposition: Home, Self-Care Condition: Stable Prescriptions: New Acyclovir 800 mg [Acyclovir] 800 mg PO 5XD 5 Days #25 tablet Prednisone 20 mg [Deltasone 20 mg] 60 mg PO DAILY 1 Days #3 tablet Hydrocodone/Acetaminophen [Hydrocodone-Acetamin 5-325 mg] 1 tab PO Q4HPRN PRN 3 Days #18 tablet MDD 6 PRN Reason: Pain Gabapentin [Neurontin ] 300 mg PO TID 30 Days #90 cap Continue Fluoxetine HCl 10 mg [Prozac 10 mg] 40 mg PO HS Lisinopril 10 mg [Zestril 10 MG] 10 mg PO HS Ergocalciferol (Vitamin D2) [Vitamin D] 50,000 unit PO WEEKLY Budesonide/Formoterol Fumarate [Symbicort 160-4.5 Mcg Inhaler] 6 gm IH DAILY Famotidine 20 mg [Pepcid 20 MG] 60 mg PO HS Pravastatin Sodium 10 mg PO UD clonazePAM [Clonazepam] 0.5 mg PO HS Aspirin [Aspirin EC] 81 mg PO HS Amlodipine Besylate 10 mg PO HS Omeprazole 40 mg PO DAILY Instructions: Shingles (DC) Follow up with: JASON FRANKLIN NP [Primary Care Provider] - 08/09/23 1:30 pm (You also have an appointment on 08/05/23 at 0915 for refill of pain medication.)
== END 2023-08-02 13:09 | disposition home or self-care (01) | DRG 596 ==
LOC: ED 08:10 → MED SURG 10:40 → OBSVTOIN 07-31 09:45
PROVIDERS: ADMIT Internal Medicine; ATTEND Internal Medicine
DX: B02.9 Zoster without complications (principal); I10 Essential (primary) hypertension; I25.10 Atherosclerotic heart disease of native coronary artery without angina pectoris; I25.2 Old myocardial infarction; F41.9 Anxiety disorder, unspecified; Z79.899 Other long term (current) drug therapy
CPT/HCPCS: 36000; 36415; 80053; 85025; 87254; 96372; 99285; G0378; Q3014; J0133; J1170; J1650; J1885; A9270-GY